=== PATIENT | male | born 1945 | race Caucasian/White ===

== ENCOUNTER 2018-02-01 13:24 | Inpatient (IN) | payer BC, SELFPAY ==
[2018-02-01] VITALS (10 sets, daily range): BP systolic 77–96; BP diastolic 49–68; PULSE 71–104; RESP 14–20; TEMP 36.5–39.2; O2SAT 93–95; BMI 25.9; BMI 25.2; BMI 25.3
--- NOTE | 2018-02-01 13:54 | EKG12_ITS ---
Test Reason : WEAKNESS Blood Pressure : / mmHG Vent. Rate : 104 BPM Atrial Rate : 104 BPM P-R Int : 158 ms QRS Dur : 102 ms QT Int : 320 ms P-R-T Axes : 034 012 063 degrees QTc Int : 420 ms Sinus tachycardia Poor R wave progression Inferior infarct , age undetermined Abnormal ECG Confirmed by BALDEV REYONSO, MARIUSZ ([id number]), order editor GERARD MERRITT ([id number]) on 02/04/2018 1:09:30 PM Referred By: LULÚ Confirmed By:MARIUSZ DE PAZ MD
--- NOTE | 2018-02-01 13:54 | RAD_ITS ---
STUDY: X-RAY CHEST REASON FOR EXAM: Male, 72 years old. Cough and fever. Weakness. TECHNIQUE: Single AP portable view of the chest. COMPARISON: Comparison is made with prior study dated March 01, 2013. FINDINGS: Early infiltrate is seen in the right lower lobe. Mild degree of increased linear markings at the left lung base. There is no demonstrated pleural abnormality. Sternal cerclage wires and vascular clips are present from a prior sternotomy and coronary artery bypass graft procedure (CABG). Normal mediastinum and onesimo. Normal visualized pulmonary arteries. There is atherosclerotic tortuosity of the aortic arch and descending thoracic aorta. Normal visualized thoracic spine. Normal visualized ribs, clavicles, and shoulders. There is no demonstrated abnormality of the visualized soft tissue structures of the upper abdomen. RAD/Chest 1 View (Portable) IMPRESSION: Right lower lobe infiltrate. Mild degree of increased markings at the left lung base. Electronically Signed: Irvin Kan MD at 14:54 EDT Tel [phone], Service support ,
[2018-02-01 14:12] LABS: Mucous, Urine 0 SEEN /hpf (<or=2+); White Blood Cells 0 SEEN /hpf (0-5)
[2018-02-01 14:16] LABS: Color, Urine Yellow (Yellow); Glucose, Dipstick Normal (Normal); Ketone-Dipstick Negative (Negative); Leukocyte Esterase-Dipstick 25 /ul (Negative); Nitrite-Dipstick Negative (Negative); Occult Blood-Urine 150 /ul (Negative); Protein-Dipstick 100 mg/dl (Negative); Urine Bilirubin Dipstick Negative (Negative); Urine Clarity Sl. Cloudy (Clear); Urine Urobilinogen 1 mg/dl (Normal)
[2018-02-01 14:18] LABS: Absolute Lymphocyte Count 0.71 X10^3/ul (0.83-4.51); Eosinophil# 0.08 X10^3/uL; Eosinophils% 0.8 % (0-5); Hematocrit 39.3 % (40-54); Hemoglobin 13.5 g/dl (13.0-16.5); Lymphocyte # 0.71 X10^3/ul (4.0); Lymphocyte % 7.2 % (19-41); Mean Corp Hgb Conc 34.4 g/gl (32-36); Mean Corpuscular Hgb 33.2 pg (27.0-32.0); Mean Corpuscular Volume 96.6 fL (80-94); Mean Platelet Vol. 10.7 fl (6.2-12.0); Monocyte# 1.11 X10^3/uL; Monocyte% 11.2 % (0-10); Neutrophil # 7.99 X10^3/uL (2.7-7.7); Neutrophil % 80.7 % (47-70); POSITIVE COUNT NO; POSITIVE DIFFERENTIAL NO; POSITIVE MORPHOLOGY NO; Platelet Count 142 K/mm3 (150-450); RBC Distribution Width SD 45.7 fl (35.1-43.9); Red Blood Count 4.07 M/mm3 (4.6-6.2); White Blood Count 9.9 K/mm3 (4.4-11.0)
[2018-02-01 14:23] LABS: International Normalized Ratio 1.2; Partial Thromboplast Time 32.5 Seconds (24.1-36.2); Prothrombin Time (Protime)PT. 15.1 SECONDS (11.7-14.9)
[2018-02-01 14:23] LABS: Bacteria 2+ /hpf (None Seen); Red Blood Cells-Urine 0-5 SEEN /hpf (0-5); Squamous Epithelial Cells - UA 0-5 SEEN /hpf (0-5)
[2018-02-01 14:33] LABS: ALB/GLOB Ratio 0.8 RATIO (0.9-2.4); AST(SGOT) 40 U/L (15-37); Alanine Aminotransfer ALT/SGPT 28 U/L (16-61); Albumin, Serum 3.2 g/dL (3.2-5.0); Alkaline Phosphatase 59 U/L (45-117); Anion Gap 10 (5-15); BUN 58 mg/dL (7-18); BUN/Creat Ratio 21.8 RATIO (10-20); Calcium,Total 8.4 mg/dL (8.5-10.1); Chloride 96 mmol/L (98-107); Creatinine, Serum 2.66 mg/dL (0.70-1.30); EST Glomerular Filtration Rate 25 mL/min (>60); Est Glom Filt Rate - Afr Amer 31 mL/min (>60); Estimated Creatinine Clearance 24.64 ml/min; Globulin 4.1 g/dL (2.2-4.2); Glucose 149 mg/dL (74-106); Potassium 3.3 mmol/L (3.5-5.1); Protein, Total 7.3 g/dL (6.4-8.2); Sodium Level 133 mmol/L (136-145)
[2018-02-01 14:42] LABS: Lactic Acid 1.6 mmol/L (0.4-2.0)
[2018-02-01] MEDS: 0.9% Normal Saline 1,000 ML 999 ML IV (15:04)
--- NOTE | 2018-02-01 15:05 | HP.PCM_ITS ---
Problem List (1) Fever Status: Acute (2) Lethargy Status: Acute History of Present Illness Date of Admission: 02/01/18 Chief Complaint: Fever and lethargy The patient is a 72 year old M with past medical history of bicuspid aortic valve status post bovine aortic valve replacement in March 2013, hypertension and hyperlipidemia. He was admitted through the ED on 02/01/2018 with complaint of fever and lethargy for 5 days. Patient states he had a subjective fever but cannot tell how high it was and was accompanied with worsening lethargy. He associated chills and a mild cough which is occasionally productive though he cannot tell the color of the sputum. He also had associated decreased appetite. He denied any shortness of breath, chest pain, palpitations, abdominal pain, pain with urination or frequency of urination, diarrhea or vomiting. In the ED, vitals were significant for temperature 102.6?F with pulse rate of 104 and respiratory rate of 20. CBC showed no leukocytosis but CMP showed sodium of 133 and potassium of 3.3 as well as creatinine of 2.66. Lactic acid was 1.6. Chest x-ray showed a right lower lobe infiltrate. He has been admitted to be managed for community-acquired pneumonia. [] Past Medical History Past Medical History (Chronic Problems): Chronic Problems (Last Reviewed 10/21/17 @ 09:05 by Michael Mcgraw MD) Aortic valve, bicuspid (Chronic) Nonrheumatic aortic (valve) insufficiency (Chronic) History of aortic valve replacement (Chronic) sternotomy and replacement of aortic valve with a size 25 pericardial valve and aortoplasty of the ascending aorta per Dr. Adithya Grullon, [facility]. HTN (hypertension) (Chronic) Chronic systolic heart failure (Chronic) Cardiomyopathy in disease classified elsewhere (Chronic) Medical History: Medical History (Last Reviewed 10/21/17 @ 09:05 by Michael Mcgraw MD) Aortic valve, bicuspid (Chronic) Q23.1 Nonrheumatic aortic (valve) insufficiency (Chronic) I35.1 HTN (hypertension) (Chronic) I10 Chronic systolic heart failure (Chronic) I50.22 Cardiomyopathy in disease classified elsewhere (Chronic) I43 Allergies No Known Allergies Allergy (Verified 10/21/17 08:47) Home Medications: Ambulatory Orders Medication Instructions Recorded carvedilol 6.25 mg tablet 6.25 mg PO BID #180 tab 07/06/17 lisinopril 20 mg tablet 20 mg PO QDAY 90 Days #90 tab 07/06/17 hydrochlorothiazide 25 mg tablet 25 mg PO QAM #90 tab 10/14/17 Surgical History: Surgical History (Last Reviewed 10/21/17 @ 09:05 by Michael Mcgraw MD) History of aortic valve replacement (Chronic) Z95.2 sternotomy and replacement of aortic valve with a size 25 pericardial valve and aortoplasty of the ascending aorta per Dr. Adithya Grullon, [facility]. S/P AVR (aortic valve replacement) and aortoplasty Onset Date: ~2012 Z95.2 Surgical History: - - aortic valve replacement-03/2013 @ [facility] Psychiatric History: No pertinent psych hx Lives: Spouse/ Significant Other Smoking Status: Former smoker - quit in 1980 Alcohol: None - *Family History Paternal Family History: Family History (Last Reviewed 10/21/17 @ 09:05 by Michael Mcgraw MD) Sister Lupus History Items: Renal Disease Maternal Family History: Family History (Last Reviewed 10/21/17 @ 09:05 by Michael Mcgraw MD) Sister Lupus History Items: No pertinent history Review of Systems Constitutional: Reports: Anorexia, Chills, Fever, Night Sweats, Malaise, Weakness, Fatigue. Denies: Weight Change Eyes: Denies: Blurred vision HEENT: Denies: Head Aches, Sinus Congestion, Sinus Drainage Cardiovascular: Denies: Chest Pain, Edema, Light Headedness, Palpitations Respiratory: Reports: Cough, Sputum production. Denies: Hemoptysis, Pleuritic Pain, Shortness of Breath, Shortness of breath at rest, Shortness of breath upon exertion, Wheezing Gastrointestinal: Denies: Abdominal Pain, Nausea, Vomiting Genitourinary: Denies: Dysuria Musculoskeletal: Denies: Joint Pain, Joint Tenderness Skin: Denies: Rash, Wounds Neurological: Denies: Numbness, Tingling, Focal weakness Psychiatric: Denies: Anxiety, Depression, Homicidal Ideations, Suicidal Ideations Hematologic/ Lymphatic: Denies: Easy Bruising, Easy Bleeding VTE Information - Inpt Only VTE Present on Admission: No VTE Pharm Prophylaxis ordered?: Yes Patient Problems: Active and Suspected Problems (Last Reviewed 10/21/17 @ 09:05 by Michael Mcgraw MD) Fever (Acute) Lethargy (Acute) - Physical Exam General: Alert, Oriented x3, Cooperative, No apparent distress HEENT: Atraumatic, PERRLA, EOMI, Normocephalic Oral: Dry Mucosa Neck: Supple, No JVD, Negative Carotid Bruits Lungs: - - Decreased breath sounds and crackles auscultated in right lower lung field Cardiovascular: Regular Rhythm, Normal S1, Normal S2, Tachycardic, - - aortic mechanical valve click Abdomen: Bowel Sounds Present, Soft, Non Tender, Non-Distended, No Hepato- splenomegaly Extremities: No clubbing, No cyanosis, No edema, Capillary Refill Less than 3 Seconds Skin: No rashes, No breakdown Musculoskeletal: No Tenderness to Palpation of Joints or Extremities Lymphatic: No Cervical, Supraclavicular, or Inguinal Adenopathy Neurological: Cranial nerves II-XII grossly intact, Neuro grossly intact, Motor Exam 5/5 strength throughout Psych/Mental Status: Normal Affect, Appropriate, Alert and oriented to time, place, person, mood and affect Vital Signs Temp Pulse Resp BP Pulse Ox 102.6 F H 97 14 96/68 93 02/01/18 15:05 02/01/18 15:05 02/01/18 15:05 02/01/18 15:05 02/01/18 15:05 Oxygen Delivery Method Room Air Weight: 171 lb Body Mass Index (BMI) 25.9 Laboratory Tests Past 24 Hrs 02/01/18 02/01/18 02/01/18 13:55 13:55 13:55 WBC 9.9 RBC 4.07 L Hgb 13.5 Hct 39.3 L MCV 96.6 H MCH 33.2 H MCHC 34.4 RDW 13.0 RDW Differential 45.7 H Plt Count 142 L MPV 10.7 Immature Gran % (Auto) 0.100 Neut % (Auto) 80.7 H Lymph % (Auto) 7.2 L Clinton % (Auto) 11.2 H Eos % (Auto) 0.8 Baso % (Auto) 0.0 Absolute Neuts (auto) 8.0 H Absolute Lymphs (auto) 0.71 L Total Counted Not Reportable PT 15.1 H INR 1.2 APTT 32.5 Sodium 133 L Potassium 3.3 L Chloride 96 L Carbon Dioxide 27.0 Anion Gap 10 BUN 58 H Creatinine 2.66 H Estim Creat Clear Calc 24.64 Est GFR (MDRD) Af Amer 31 L Est GFR (MDRD) Non-Af 25 L BUN/Creatinine Ratio 21.8 H Glucose 149 H Lactic Acid Calcium 8.4 L Total Bilirubin 0.80 AST 40 H ALT 28 Alkaline Phosphatase 59 Total Protein 7.3 Albumin 3.2 Globulin 4.1 Albumin/Globulin Ratio 0.8 L Urine Color Urine Clarity Urine pH Ur Specific Glidden Urine Protein Urine Glucose (UA) Urine Ketones Urine Occult Blood Urine Nitrite Urine Bilirubin Urine Urobilinogen Ur Leukocyte Esterase Urine RBC Urine WBC Ur Squamous Epith Cells Urine Bacteria Urine Mucus 02/01/18 02/01/18 13:55 14:00 WBC RBC Hgb Hct MCV MCH MCHC RDW RDW Differential Plt Count MPV Immature Gran % (Auto) Neut % (Auto) Lymph % (Auto) Clinton % (Auto) Eos % (Auto) Baso % (Auto) Absolute Neuts (auto) Absolute Lymphs (auto) Total Counted PT INR APTT Sodium Potassium Chloride Carbon Dioxide Anion Gap BUN Creatinine Estim Creat Clear Calc Est GFR (MDRD) Af Amer Est GFR (MDRD) Non-Af BUN/Creatinine Ratio Glucose Lactic Acid 1.6 Calcium Total Bilirubin AST ALT Alkaline Phosphatase Total Protein Albumin Globulin Albumin/Globulin Ratio Urine Color Yellow Urine Clarity Sl. Cloudy Urine pH 5.0 Ur Specific Glidden 1.020 Urine Protein 100 H Urine Glucose (UA) Normal Urine Ketones Negative Urine Occult Blood 150 H Urine Nitrite Negative Urine Bilirubin Negative Urine Urobilinogen 1 H Ur Leukocyte Esterase 25 H Urine RBC 0-5 SEEN Urine WBC 0 SEEN Ur Squamous Epith Cells 0-5 SEEN Urine Bacteria 2+ Urine Mucus 0 SEEN Diagnostic Data Chest X-Ray 02/01/18 13:54 IMPRESSION: Right lower lobe infiltrate. Mild degree of increased markings at the left lung base. Electronically Signed: Irvin Kan MD at 14:54 EDT Tel [phone], Service support , Assessment/Plan All Active Problems (Last Reviewed 10/21/17 @ 09:05 by Michael Mcgraw MD) Fever (Acute) Lethargy (Acute) 72-year-old male presenting with a 5-day history of fever, mild cough which is productive and chills. 1. Sepsis due to community acquired pneumonia * SIRS criteria on admission in ED was 3/4 (tachycardia, tachypnea and fever) * CXR per my review showed right lower lobe infiltrate * admit to PCU with telemetry * CBC: no leucocytosis * blood cultures; urine for strep and legionella antigens. * LActic acid-1.8 * UA showed 2+ bacteria; patient however has no urinary symptoms. Will culture urine. * Screen for flu * Started on IV ceftriaxone and azithromycin in the ED. We will continue to treat for community-acquired pneumonia. * Hydrate with IV fluids. * Tylenol as needed for fever * 2. Hyponatremia: * Sodium is 133. * This is likely due to dehydration as patient has not been eating and drinking well; therefore likely hypovolemic hypotonic hyponatremia. * Expect to improve with IV fluid administration. * 3. AK I * Creatinine is 2.66, with baseline being around 1.2. * Also likely prerenal due to decreased intake. * Will hydrate with IV fluids and monitor trend. If creatinine does not improve, will consider nephrology consult. * 4. Hypokalemia: K is 3.3. Will replace and monitor 5. HFrEF: * echo (09/30/2016): showed EF of 40%, with mild to moderate global LV systolic dysfunction. BIoprosthetic aortic valve. * not on any diuretic. * will continue to monitor 4. Thrombocytopenia * Is chronic. Platelets are 142, with baseline of around 145-150 from 2012 * will monitor * 5. Hypertension: * Blood pressure was running in the 90s systolic in the ED. On carvedilol hydrochlorothiazide and lisinopril. * Will hold these on account of low blood pressure and also with lisinopril, on account of AK I. * will resume once BP improves * DVT prophylaxis: heparin COde status: full code * patient and counselled about different types of code status, including full code, DNRCC and DNRCCA. Patient elects to be full code. TOtal face to face time- 17 mins Code Visit Inpatient E&M: 52796 Init Hosp L3 Procedures: 19371 Advncd Care Plan 30 Min
--- NOTE | 2018-02-01 15:08 | ED.DCSUM_ITS ---
- ER Visit Summary Date of Service: 02/01/18 Chief Complaint: Generalized weakness History of Present Illness: The patient is a 72 M setting for evaluation secondary generalized weakness. Patient reports over the course last 5 days he has been having issues with feeling generally weak. He reports that he has been having severe night sweats. He reports that he has unsteadiness on his feet, decreased p.o. intake, but increased thirst and increased urination. This has been associated with some nausea. He denies any objective fevers. He denies any chest pain shortness of breath cough nausea or vomiting associated with this. He denies any skin rashes. Review of systems otherwise negative. Physical Examination: Vital signs notable for blood pressure 96/63 heart rate of 109 respiratory rate of 20 and pulse ox 93%. Well-nourished male no acute distress. No evidence of conjunctival pallor or scleral icterus. Moist mucous membranes. No JVD. Heart was tachycardic regular with a 2 out of 6 systolic murmur consistent with the patient's history of aortic valve replacement. Lung sounds clear to auscultation bilaterally. Abdomen soft nontender. Extremities nontender. No skin rashes noted. No lateralizing neurological deficits. Test Results: EKG demonstrates sinus tachycardia with a rate of [address] segments normal T waves and old inferior Q waves. CBC shows thrombocytopenia platelet count 142. Chemistry shows acute kidney injury BUN and creatinine of 50 and 2 respectively. Urinalysis shows 2+ bacteria but no leukocytes lactic acid negative chest x-ray shows right lower lobe infiltrate. Emergency Department Course and Treatment: Patient presented for evaluation secondary to generalized weakness. He had mediocre blood pressures, he was worked up for the possibility of sepsis. Patient's workup as noted above ended up showing right lower lobe infiltrate with acute kidney injury. Patient does meet severe sepsis criteria. Patient was given fluid resuscitation, Rocephin, azithromycin, will be admitted under the hospitalist. Disposition: Admission Impression: 1. Community-acquired pneumonia 2. Severe sepsis 3. Acute kidney injury This note was generated with [employer] dictation software. It may contain incorrect words, spelling, and punctuation that were not noted in review of the chart prior to signing ED Disposition - Plan for ED Patient: Chief Complaint: Weakness Referrals: Care Physician,No Primary [Primary Care Provider] -
[2018-02-01] MEDS: Acetaminophen 500 MG Tablet 1000 MG PO (15:11)
[2018-02-01] MEDS: Ceftriaxone 1 GM/50 ML BAG IV ×2 (15:17→21:00)
[2018-02-01] MEDS: 0.9% Normal Saline 1,000 ML 250 ML IV (16:58)
[2018-02-01] MEDS: 0.9% Normal Saline 1,000 ML 125 ML IV (21:00)
[2018-02-01] MEDS: Heparin Injection (Vial) 5,000 UNIT/ML VIAL 5000 UNIT SC (21:01)
[2018-02-02] VITALS (14 sets, daily range): BP systolic 97–139; BP diastolic 64–86; PULSE 59–92; RESP 18–20; TEMP 36.8–39.4; O2SAT 90–95
[2018-02-02] MEDS: Acetaminophen 325 MG Tablet 650 MG PO ×2 (04:51→13:56)
[2018-02-02] MEDS: 0.9% Normal Saline 1,000 ML 125 ML IV ×3 (04:51→21:01)
[2018-02-02] MEDS: Heparin Injection (Vial) 5,000 UNIT/ML VIAL 5000 UNIT SC ×3 (04:56→21:01)
[2018-02-02 06:30] LABS: Absolute Neutrophil Count 6.6 X10^3/uL (2.0-7.7); Basophil# 0.01 X10^3/uL; Basophil% 0.1 % (0-1); Hematocrit 34.4 % (40-54); Hemoglobin 11.8 g/dl (13.0-16.5); Lymphocyte % 10.9 % (19-41); Mean Corp Hgb Conc 34.3 g/gl (32-36); Mean Corpuscular Hgb 33.1 pg (27.0-32.0); Mean Corpuscular Volume 96.6 fL (80-94); Monocyte# 0.66 X10^3/uL; Neutrophil # 6.63 X10^3/uL (2.7-7.7); Neutrophil % 80.8 % (47-70); Platelet Count 128 K/mm3 (150-450); RBC Distribution Width CV 12.6 % (11.6-14.6); RBC Distribution Width SD 42.7 fl (35.1-43.9); Red Blood Count 3.56 M/mm3 (4.6-6.2); White Blood Count 8.2 K/mm3 (4.4-11.0)
[2018-02-02 06:58] LABS: Anion Gap 9 (5-15); BUN 39 mg/dL (7-18); BUN/Creat Ratio 24.2 RATIO (10-20); Calcium,Total 7.6 mg/dL (8.5-10.1); Chloride 102 mmol/L (98-107); Creatinine, Serum 1.61 mg/dL (0.70-1.30); EST Glomerular Filtration Rate 45 mL/min (>60); Est Glom Filt Rate - Afr Amer 55 mL/min (>60); Estimated Creatinine Clearance 40.71 ml/min; Glucose 99 mg/dL (74-106); Potassium 3.4 mmol/L (3.5-5.1); Sodium Level 134 mmol/L (136-145)
[2018-02-02 06:59] LABS: POSITIVE COUNT NO; POSITIVE DIFFERENTIAL NO; POSITIVE MORPHOLOGY NO
--- NOTE | 2018-02-02 08:00 | ECHOD_ITS ---
Reason For Study: AVR Procedure This was a 2D Doppler, Color Flow transthoracic echocardiogram. Exam performed portable in patient room. Left Ventricle Normal size and thickness. The estimated ejection fraction is 65 %. Stage 2 diastolic dysfunction. No regional wall motion abnormalities noted. Right Ventricle Normal size and thickness. Normal systolic function. Atria Normal left atrium. Normal right atrium. Normal atrial septum. Mitral Valve The mitral valve is structurally normal. No prolapse or stenosis seen. Mild (1+) eccentric mitral valve insufficiency. Tricuspid Valve Normal tricuspid valve. Mild (1+) tricuspid valve insufficiency. Right ventricular systolic pressure estimated to be 37 mmHg. Mild pulmonary hypertension. Aortic Valve Peak aortic valve gradient 61 mmHg. Mean aortic valve gradient 38 mmHg. Moderate aortic stenosis. Trivial aortic valve insufficiency. Stable appearing bioprosthetic aortic valve apparatus. Pulmonic Valve Normal pulmonic valve. Trivial pulmonic valve insufficiency. Great Vessels Normal aortic root. Normal arch. Normal inferior vena cava. Inferior vena cava collapse with sniff. Pericardium/Pleural No pericardial effusion. MMode/2D Measurements & Calculations LVIDd: 5.3 cm IVSd: 1.5 cm LVOT diam: 2.1 cm LVIDs: 3.6 cm LVPWd: 1.1 cm LVOT area: 3.4 cm2 RVDd: 4.8 cm FS: 33.1 % Ao root diam: 3.6 cm LAV(MOD-sp4): 59.1 ml EDV(MOD-sp4): 93.8 ml LA dimension: 4.5 cm ESV(MOD-sp4): 35.2 ml EF(MOD-sp4): 62.4 % SV(MOD-sp4): 58.6 ml LA A4 area: 18.7 cm2 LA dimension(2D): 4.9 cm RA A4 area: 20.0 cm2 Doppler Measurements & Calculations MV E max otto: 95.9 cm/sec Lat Peak E' Otto: 9.2 cm/sec Med Peak E' Otto: 5.4 cm/sec MV A max otto: 79.2 cm/sec E/E' lat: 10.4 E/E' med: 17.9 MV E/A: 1.2 Ao V2 max: 381.1 cm/sec LV V1 max: 167.2 cm/sec SV(LVOT): 134.6 ml Ao max P.1 mmHg LV V1 max P.2 mmHg Ao V2 mean: 285.7 cm/sec LV V1 mean P.6 mmHg Ao mean P.5 mmHg LV V1 mean: 131.2 cm/sec Ao V2 VTI: 85.0 cm LV V1 VTI: 40.0 cm THUY(I,D): 1.6 cm2 THUY(V,D): 1.5 cm2 PA V2 max: 89.4 cm/sec PI end-d otto: 116.7 cm/sec Interpretation Summary The estimated ejection fraction is 65 %. Stage 2 diastolic dysfunction. Mild (1+) eccentric mitral valve insufficiency. Mild (1+) tricuspid valve insufficiency. Right ventricular systolic pressure estimated to be 37 mmHg. Stable and normal appearing bioprosthetic aortic valve apparatus. Peak aortic valve gradient 61 mmHg. Mean aortic valve gradient 38 mmHg. Moderate residual aortic stenosis with bioprosthetic AVR. Compared to echo report dated 09/30/2016, LV function has improved from 405 to 65%, AVR has remained the same. Ordering Physician: Nina Acosta Performed By: Leeanne Meyer RDCS, RVT
[2018-02-02] MEDS: Ceftriaxone 1 GM/50 ML BAG IV ×2 (09:51→21:01)
[2018-02-02 10:52] LABS: Magnesium 1.8 mg/dL (1.6-2.6); Phosphorus 1.7 mg/dL (2.5-4.9)
--- NOTE | 2018-02-02 11:56 | CASEMGMT ---
KARLY RAMOS assessment: Face to Face with patient for initial transition planning/care coordination assessment. KARLY RAMOS introduced self and role at [facility], pt voices understanding and consents to assessment at this time. Pt is lying in bed in no distress at this time. Pt is A/O x4 at this time and answers all questions appropriately at this time. Care providers, pharmacy, and demographics verified at this time. PCP: Pt states does not have PCP and declines local PCP list at this time. Specialists: Pt states has not specialists. Preferred [facility]acy: [facility] Insurance: [place] Prescription Benefit: [place] Living Will/HPOA: Pt states does not currently have LW/HPOA but would like info on AD at this time. Referral to [facility], voices understanding. LNOK: Makayla Zacarias, Living Arrangements: Pt states lives with in home and states no concerns at home at this time. Transportation: Pt states drives self and states no transportation concerns at this time. DME/HHC: Pt states no current DME or need for any at this time. Pt states no hx of SNF or HHC. 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 Pt states does not smoke or drink ETOH. Pt states no concerns with going home at time of discharge. Pt voices no further concerns/needs at this time. CM to follow for any further discharge planning/needs. Advised pt to ask for CM if any further questions/concerns/needs arise, voices understanding. Plan: [place] KARLY RAMOS
--- NOTE | 2018-02-02 13:35 | ED.RN ---
STUDENT CHARTING REVIEWED BY THIS RN.
--- NOTE | 2018-02-02 14:08 | CASEMGMT ---
RN CM said patient would like information on advance directives. SW spoke with patient, introduced self and role at [facility]. He said he would like the documents and will look over them. Catarina DUMONT
--- NOTE | 2018-02-02 15:38 | PN_ITS ---
<Agustin Harrison - Last Filed: 02/02/18 15:28> Patient Problems: Active and Suspected Problems (Last Reviewed 10/21/17 @ 09:05 by Michael Mcgraw MD) Fever (Acute) Lethargy (Acute) Subjective: Overall pt feels improved but still very weak. He denies pleurisy, cough, and SOB. He has no CP. He has had fevers, chills, and night sweats the last few days. Fever has been present since admission. Denies smoking, denies sick contacts. Sawdust exposure at work. No Asthma/COPD. No urinary symptoms. - Physical Exam General: Alert, Oriented x3, Cooperative HEENT: Atraumatic, PERRLA, EOMI, Normocephalic Neck: Supple, No JVD, Negative Carotid Bruits Lungs: Rales - RLL Cardiovascular: Regular rate, No murmurs Abdomen: Bowel Sounds Present, Soft, Non Tender Extremities: No edema, Capillary Refill Less than 3 Seconds Skin: No rashes, No breakdown Musculoskeletal: No Tenderness to Palpation of Joints or Extremities Neurological: Cranial nerves II-XII grossly intact Psych/Mental Status: Normal Affect, Appropriate Vital Signs Temp Pulse Resp BP Pulse Ox 103 F H 75 20 H 114/73 90 02/02/18 14:06 02/02/18 15:00 02/02/18 14:06 02/02/18 14:06 02/02/18 14:06 Oxygen Delivery Method Room Air Weight: 166 lb 7.184 oz Body Mass Index (BMI) 25.2 Intake and Output for Last 24 Hours 01/31/18 02/01/18 02/02/18 23:59 23:59 23:59 Intake Total 4706 / 4706 2294 / 2294 Output Total 350 / 350 Balance 4356 / 4356 2294 / 2294 Microbiology Past 72 Hours 02/01/18 19:25 Respiratory Panel (PCR) - Final Mucosa - Nasopharyngeal 02/01/18 14:00 Streptococcus pneumoniae Antigen (M - Final Urine, Clean Catch 02/01/18 14:00 Legionella Antigen - Final Urine, Clean Catch Laboratory Tests Past 24 Hrs 02/02/18 02/02/18 02/02/18 05:35 05:35 05:35 WBC 8.2 RBC 3.56 L Hgb 11.8 L Hct 34.4 L MCV 96.6 H MCH 33.1 H MCHC 34.3 RDW 12.6 RDW Differential 42.7 Plt Count 128 L MPV 11.0 Immature Gran % (Auto) 0.200 Neut % (Auto) 80.8 H Lymph % (Auto) 10.9 L [place] % (Auto) 8.0 Eos % (Auto) 0.0 Baso % (Auto) 0.1 Absolute Neuts (auto) 6.6 Absolute Lymphs (auto) 0.90 Total Counted Not Reportable Sodium 134 L Potassium 3.4 L Chloride 102 Carbon Dioxide 23.0 Anion Gap 9 BUN 39 H Creatinine 1.61 H Estim Creat Clear Calc 40.71 Est GFR (MDRD) Af Amer 55 L Est GFR (MDRD) Non-Af 45 L BUN/Creatinine Ratio 24.2 H Glucose 99 Calcium 7.6 L Phosphorus 1.7 L Magnesium 1.8 Medical Necessity - Tobacco Use Smoking Status: Former smoker - quit in 1980 Assessment/Plan All Active Problems (Last Reviewed 10/21/17 @ 09:05 by Michael Mcgraw MD) Fever (Acute) Lethargy (Acute) 1. Acute sepsis 2/2 RLL CAP - continue rocephin/azithro. Resp panel neg. Continues to have fever up to 103. No WBC elevation. LA neg. CXR c/w RLL pna. 2. RONEN 2/2 sepsis - improving. 3. hyponatremia - likely 2/2 hypovolemic and HCTZ (held for ronen). improved. 4. Hypokalemia/hypomag/hykophos - repleted, mildly low mag, replete. Phos low. Replete. 5. HFrEF - this does not apepar to be an acute exacerbation. Echo pending. Known EF 40%. Continue coreg. SHAD held for RONEN. 6. hx bovine aortic valve - echo pending. DVT ppx: heparin DC planning: pt/ot for ongoing weakness. This patient was seen by Agustin Harrison PA-C under the supervision of Doctor Schuster. <Wily Schuster - Last Filed: 02/02/18 16:36> Subjective: Patient was seen and examined. Patient was admitted with 5 days of fever, cough productive with clear sputum. On chest x-ray small right lower lobe community- acquired pneumonia. Patient also has hyponatremia, sodium 133, acute kidney injury creatinine 2.6, baseline 1.2. Has chronic systolic heart failure with EF 40% on echo September 2016. Bioprosthetic AV valve. - Physical Exam General: Alert, Oriented x3, Cooperative HEENT: Atraumatic, PERRLA, EOMI, Normocephalic Neck: Supple, No JVD, Negative Carotid Bruits Lungs: Diminished - Air entry diminished in bilateral lung bases, more on the left side, Rales - RLL coarse crepitation present on the right posterior half. Cardiovascular: Regular rate, Regular Rhythm, Normal S1, Normal S2, No murmurs Abdomen: Bowel Sounds Present, Soft, Non Tender, Non-Distended, No Hepato- splenomegaly Extremities: No edema, Capillary Refill Less than 3 Seconds Skin: No rashes, No breakdown Musculoskeletal: No Tenderness to Palpation of Joints or Extremities, Arthritic Changes Neurological: Cranial nerves II-XII grossly intact, Neuro grossly intact, Motor Exam 5/5 strength throughout Psych/Mental Status: Normal Affect, Appropriate Vital Signs Temp Pulse Resp BP Pulse Ox 99.4 F H 73 18 97/64 93 02/02/18 15:39 02/02/18 15:39 02/02/18 15:39 02/02/18 15:39 02/02/18 15:39 Oxygen Delivery Method Room Air Weight: 166 lb 7.184 oz Body Mass Index (BMI) 25.2 Intake and Output for Last 24 Hours 01/31/18 02/01/18 02/02/18 23:59 23:59 23:59 Intake Total 4706 / 4706 2294 / 2294 Output Total 350 / 350 Balance 4356 / 4356 2294 / 2294 Microbiology Past 72 Hours 02/01/18 19:25 Respiratory Panel (PCR) - Final Mucosa - Nasopharyngeal 02/01/18 14:00 Streptococcus pneumoniae Antigen (M - Final Urine, Clean Catch 02/01/18 14:00 Legionella Antigen - Final Urine, Clean Catch Laboratory Tests Past 24 Hrs 02/02/18 02/02/18 02/02/18 05:35 05:35 05:35 WBC 8.2 RBC 3.56 L Hgb 11.8 L Hct 34.4 L MCV 96.6 H MCH 33.1 H MCHC 34.3 RDW 12.6 RDW Differential 42.7 Plt Count 128 L MPV 11.0 Immature Gran % (Auto) 0.200 Neut % (Auto) 80.8 H Lymph % (Auto) 10.9 L [place] % (Auto) 8.0 Eos % (Auto) 0.0 Baso % (Auto) 0.1 Absolute Neuts (auto) 6.6 Absolute Lymphs (auto) 0.90 Total Counted Not Reportable Sodium 134 L Potassium 3.4 L Chloride 102 Carbon Dioxide 23.0 Anion Gap 9 BUN 39 H Creatinine 1.61 H Estim Creat Clear Calc 40.71 Est GFR (MDRD) Af Amer 55 L Est GFR (MDRD) Non-Af 45 L BUN/Creatinine Ratio 24.2 H Glucose 99 Calcium 7.6 L Phosphorus 1.7 L Magnesium 1.8 Assessment/Plan This patient was seen in conjunction with Agustin LEWIS. I have independently interviewed and examined the patient and reviewed pertinent history, examination findings, laboratory and plan of management. I have reviewed the note and agree with the documented findings with the few additional points. In brief, patient is 72-year-old gentleman with history of bicuspid aortic valve status post bovine aortic valve replacement in March 2013 chronic systolic heart failure EF 40% as per echo in September 2016,hypertension and hyperlipidemia was admitted with fever, cough with clear sputum, generalized weakness consistent with acute sepsis SIRS 3/4 (tachycardia, tachypnea and fever) secondary to right lower lobe community acquired pneumonia; present on admission. Patient also has acute kidney injury probably prerenal etiology, creatinine improving. Mild hyponatremia on IV fluid normal saline. 2D echo was done. I have discussed my assessment with Agustin LEWIS and orders have been reviewed. Code Visit Inpatient E&M: 17750 Subs Hosp L3
[2018-02-02] MEDS: Magnesium Oxide 400 MG Tablet PO (17:24)
[2018-02-03 03:00] VITALS: BP 120/76; PULSE 77; PULSE 80; RESP 16; TEMP 37.1; O2SAT 93
[2018-02-03] MEDS: Heparin Injection (Vial) 5,000 UNIT/ML VIAL 5000 UNIT SC (05:20)
[2018-02-03] MEDS: Na Biphos/Potassium Phosphate PACKET 1 PACKET PO (05:20)
[2018-02-03] MEDS: 0.9% Normal Saline 1,000 ML 125 ML IV (05:20)
[2018-02-03 06:45] LABS: Absolute Lymphocyte Count 0.98 X10^3/ul (0.83-4.51); Absolute Neutrophil Count 4.6 X10^3/uL (2.0-7.7); Eosinophil# 0.02 X10^3/uL; Eosinophils% 0.3 % (0-5); Hematocrit 32.9 % (40-54); Hemoglobin 11.3 g/dl (13.0-16.5); Lymphocyte # 0.98 X10^3/ul (4.0); Lymphocyte % 15.7 % (19-41); Mean Corp Hgb Conc 34.3 g/gl (32-36); Mean Corpuscular Hgb 32.9 pg (27.0-32.0); Mean Corpuscular Volume 95.9 fL (80-94); Mean Platelet Vol. 10.5 fl (6.2-12.0); Monocyte# 0.63 X10^3/uL; Monocyte% 10.1 % (0-10); Neutrophil % 73.7 % (47-70); Platelet Count 135 K/mm3 (150-450); RBC Distribution Width SD 45.4 fl (35.1-43.9); Red Blood Count 3.43 M/mm3 (4.6-6.2); White Blood Count 6.2 K/mm3 (4.4-11.0)
[2018-02-03 07:00] VITALS: PULSE 66
[2018-02-03 07:00] LABS: POSITIVE COUNT NO; POSITIVE DIFFERENTIAL NO; POSITIVE MORPHOLOGY NO
[2018-02-03 07:13] LABS: Anion Gap 10 (5-15); BUN 26 mg/dL (7-18); BUN/Creat Ratio 20.8 RATIO (10-20); Calcium,Total 7.7 mg/dL (8.5-10.1); Chloride 104 mmol/L (98-107); Creatinine, Serum 1.25 mg/dL (0.70-1.30); EST Glomerular Filtration Rate 60 mL/min (>60); Est Glom Filt Rate - Afr Amer 73 mL/min (>60); Estimated Creatinine Clearance 52.44 ml/min; Glucose 91 mg/dL (74-106); Magnesium 1.7 mg/dL (1.6-2.6); Phosphorus 1.4 mg/dL (2.5-4.9); Potassium 3.8 mmol/L (3.5-5.1); Sodium Level 137 mmol/L (136-145)
[2018-02-03 09:00] VITALS: BP 117/70; PULSE 72; RESP 16; TEMP 37.1; O2SAT 93
[2018-02-03] MEDS: Ceftriaxone 1 GM/50 ML BAG IV (09:03)
[2018-02-03] MEDS: Carvedilol 6.25 MG Tablet PO (09:04)
[2018-02-03] MEDS: Magnesium Oxide 400 MG Tablet PO (09:07)
[2018-02-03 11:00] VITALS: PULSE 97
--- NOTE | 2018-02-03 11:28 | DCINST_ITS ---
- Discharge Diagnoses Current Active Problems: Current Active and Chronic Problems (Last Reviewed 10/21/17 @ 09:05 by Michael Mcgraw MD) Fever (Acute) Lethargy (Acute) You will use the following diet at home:: Cardiac Discharge Activity: Return to Normal Activity Call your doctor if you observe: Shortness of breath, Dizziness, Fainting spells, Chest pain Allergies/Adverse Reactions: Allergies No Known Allergies Allergy (Verified 10/21/17 08:47) Medications to take at Discharge carvedilol 6.25 mg tablet 6.25 mg PO BID #180 tab 07/06/17 lisinopril 20 mg tablet 20 mg PO QDAY 90 Days #90 tab 07/06/17 hydrochlorothiazide 25 mg tablet 25 mg PO QAM #90 tab 10/14/17 Levofloxacin [Levaquin] 750 mg PO DAILY #7 tablet 02/03/18 The following prescriptions were given: Levofloxacin [Levaquin] 750 mg PO DAILY #7 tablet Primary Care Physician: Care Physician,No Primary [Primary Care Provider] - Please follow up with your Primary Care Physician in: 3-5 days Test Results: Test results from this visit will be discussed in further detail at your follow- up appointment, if applicable. Please Follow Up With: Michael Mcgraw MD When: As scheduled Proposed Discharge Date: 02/03/18
--- NOTE | 2018-02-03 12:25 | DS.PCM_ITS ---
<Keila Oneill - Last Filed: 02/03/18 12:36> Discharge Date and Diagnosis Date of Admission: 02/01/18 Date of Discharge: 02/03/18 - Primary Discharge Diagnosis 1. Acute sepsis secondary to right lower lobe community-acquired pneumonia 2. Acute kidney injury secondary to sepsis 3. Electrolyte disturbance including hyponatremia, hypokalemia, hypomagnesemia, hypophosphatemia suspect secondary to hypovolemia and HCTZ regimen. RONEN resolved. 4. Chronic systolic CHF 5. History of bovine aortic valve - Secondary Discharge Diagnosis Chronic Problems (Last Reviewed 10/21/17 @ 09:05 by Michael Mcgraw MD) Aortic valve, bicuspid (Chronic) Nonrheumatic aortic (valve) insufficiency (Chronic) History of aortic valve replacement (Chronic) sternotomy and replacement of aortic valve with a size 25 pericardial valve and aortoplasty of the ascending aorta per Dr. Adithya Grullon, [facility]. HTN (hypertension) (Chronic) Chronic systolic heart failure (Chronic) Cardiomyopathy in disease classified elsewhere (Chronic) Hospital Course and Treatment Imaging Results: Diagnostic Data Chest X-Ray 02/01/18 13:54 IMPRESSION: Right lower lobe infiltrate. Mild degree of increased markings at the left lung base. Electronically Signed: Irvin Kan MD at 14:54 EDT Tel [phone], Service support , Operations: None Procedures: None Summary of Care Provided: The patient is a 72 year old M admitted 02/01/2018 due to fever and lethargy. He has a past medical history of hypertension, hyperlipidemia, status post aortic valve replacement with bovine valve. 1. Acute sepsis secondary to right lower lobe community-acquired pneumonia-chest x-ray on admission showed right lower lobe infiltrate. Patient with tachycardia, tachypnea and fever on admission. No leukocytosis. Lactic acid within normal limits. Urine for strep and Legionella negative. Respiratory panel negative. Blood culture shows no growth in 48 hours. Treated with IV Rocephin and IV azithromycin. Discharge on oral Levaquin 750 mg for 7 days at discharge. Follow-up with primary care physician in 1 week. 2. Acute kidney injury secondary to sepsis-resolved with IV fluids. 3. Electrolyte disturbance including hyponatremia, hypokalemia, hypomagnesemia, hypophosphatemia suspect secondary to hypovolemia and HCTZ regimen. RONEN resolved. Electrolytes replace per protocol. Within normal limits at discharge. 4. Chronic systolic CHF-no acute exacerbation. Echo September 2016 with EF 40%. 5. History of bovine aortic valve 6. Hyperlipidemia-not on regimen. Will refer to PCP. General: Alert, Oriented x3, Cooperative, No apparent distress HEENT: Atraumatic, PERRLA, EOMI, Normocephalic Oral: Dry Mucosa Neck: Supple, No JVD, Negative Carotid Bruits Lungs: Diminished, mild scattered crackles right lower lobe Cardiovascular: Regular Rhythm, regular rate, normal S1, Normal S2, Aortic mechanical valve click Abdomen: Bowel Sounds Present, Soft, Non Tender, Non-Distended, No Hepato- splenomegaly Extremities: No clubbing, No cyanosis, No edema, Capillary Refill Less than 3 Seconds Skin: No rashes, No breakdown Musculoskeletal: No Tenderness to Palpation of Joints or Extremities Lymphatic: No Cervical, Supraclavicular, or Inguinal Adenopathy Neurological: Cranial nerves II-XII grossly intact, Neuro grossly intact Psych/Mental Status: Normal Affect, Appropriate Patient seen exam prior to discharge. Physical assessment as noted above. P atient stable for discharge home with follow-up her conditions as noted above. This patient was seen by DAMARIS Austin under the supervision of Dr. Schuster. - Physical Exam Vital Signs Temp Pulse Resp BP Pulse Ox 98.8 F 97 16 117/70 93 02/03/18 09:00 02/03/18 11:00 02/03/18 09:00 02/03/18 09:00 02/03/18 09:00 Oxygen Delivery Method Room Air Weight: 166 lb 7.184 oz Body Mass Index (BMI) 25.2 Intake and Output for Last 24 Hours 02/01/18 02/02/18 02/03/18 23:59 23:59 23:59 Intake Total 4706 / 4706 3495 / 3495 3114 / 3114 Output Total 350 / 350 200 / 200 1425 / 1425 Balance 4356 / 4356 3295 / 3295 1689 / 1689 Microbiology Past 72 Hours 02/01/18 14:20 Blood Culture - Preliminary Blood Culture (Wb) - Left Hand No growth in 48 hours. 02/01/18 13:55 Blood Culture - Preliminary Blood Culture (Wb) - Anticubital Left No growth in 48 hours. 02/01/18 14:00 Urine Culture - Preliminary Urine, Clean Catch Culture exhibits no growth. 02/01/18 19:25 Respiratory Panel (PCR) - Final Mucosa - Nasopharyngeal 02/01/18 14:00 Streptococcus pneumoniae Antigen (M - Final Urine, Clean Catch 02/01/18 14:00 Legionella Antigen - Final Urine, Clean Catch Laboratory Tests Past 24 Hrs 02/03/18 02/03/18 05:40 05:40 WBC 6.2 RBC 3.43 L Hgb 11.3 L Hct 32.9 L MCV 95.9 H MCH 32.9 H MCHC 34.3 RDW 13.0 RDW Differential 45.4 H Plt Count 135 L MPV 10.5 Immature Gran % (Auto) 0.200 Neut % (Auto) 73.7 H Lymph % (Auto) 15.7 L [place] % (Auto) 10.1 H Eos % (Auto) 0.3 Baso % (Auto) 0.0 Absolute Neuts (auto) 4.6 Absolute Lymphs (auto) 0.98 Total Counted Not Reportable Sodium 137 Potassium 3.8 Chloride 104 Carbon Dioxide 23.0 Anion Gap 10 BUN 26 H Creatinine 1.25 Estim Creat Clear Calc 52.44 Est GFR (MDRD) Af Amer 73 Est GFR (MDRD) Non-Af 60 BUN/Creatinine Ratio 20.8 H Glucose 91 Calcium 7.7 L Phosphorus 1.4 L Magnesium 1.7 Discharge Activity: Return to Normal Activity Call your doctor if you observe: Shortness of breath, Dizziness, Fainting spells, Chest pain Home Medications: Medications to take at Discharge carvedilol 6.25 mg tablet 6.25 mg PO BID #180 tab 07/06/17 lisinopril 20 mg tablet 20 mg PO QDAY 90 Days #90 tab 07/06/17 hydrochlorothiazide 25 mg tablet 25 mg PO QAM #90 tab 10/14/17 Levofloxacin [Levaquin] 750 mg PO DAILY #7 tablet 02/03/18 Following Prescrptions Were Given to Patient: Levofloxacin [Levaquin] 750 mg PO DAILY #7 tablet Primary Care Physician: Care Physician,No Primary [Primary Care Provider] - Please follow up with your Primary Care Physician in: 3-5 days Please Follow Up With: Michael Mcgraw MD When: As scheduled Please Follow Up With: Sumanth Hernández MD Disposition: Home Minutes spent on discharge:: 35 Patient Condition:: Stable Medical Necessity - Tobacco Use Smoking Status: Former smoker - quit in 1980 Meaningful Use Info Meaningful Use Diagnoses (Choose all that apply): None applicable <Wily Schuster - Last Filed: 02/03/18 16:25> Discharge Date and Diagnosis - Secondary Discharge Diagnosis Chronic Problems (Last Reviewed 10/21/17 @ 09:05 by Michael Mcgraw MD) Aortic valve, bicuspid (Chronic) Nonrheumatic aortic (valve) insufficiency (Chronic) History of aortic valve replacement (Chronic) sternotomy and replacement of aortic valve with a size 25 pericardial valve and aortoplasty of the ascending aorta per Dr. Adithya Grullon, [facility]. HTN (hypertension) (Chronic) Chronic systolic heart failure (Chronic) Cardiomyopathy in disease classified elsewhere (Chronic) Hospital Course and Treatment Summary of Care Provided: This patient was seen in conjunction with Keila BUCK. I have independently interviewed and examined the patient and reviewed pertinent history, examination findings, laboratory and plan of management. I have reviewed the note and agree with the documented findings with the few additional points. In brief, patient is 72-year-old gentleman with history of bicuspid aortic valve status post bovine aortic valve replacement in March 2013 chronic systolic heart failure EF 40% as per echo in September 2016,hypertension and hyperlipidemia was admitted with fever, cough with clear sputum, generalized weakness consistent with acute sepsis SIRS 3/4 (tachycardia, tachypnea and fever) secondary to right lower lobe community acquired pneumonia; present on admission. Patient also has acute kidney injury probably prerenal etiology, creatinine improving. Mild hyponatremia on IV fluid normal saline. 2D echo was done. 2D echo reported as EF 65% with a stage II diastolic dysfunction. Moderate right ventricular hypertrophy. Right atrium normal. Left atrium normal. Mild TR, RVSP 30 cm G. Moderate pulmonary hypertension. Status post AV replacement. Trivial AR. Acute kidney injury resolved, to baseline 1.25. Sodium corrected to 137. Discharge medication reconciliation done. Follow-up instructions given. Patient is discharged on Levaquin. I have discussed my assessment with Keila BUCK and orders have been reviewed. [] Total time spent, exact 35 minutes on discharge meds reconciliation, examination, review of imaging and blood test and discussion with the patient on follow-up instructions. Subjective: Seen and examined. Patient comfortably sitting in the chair. No shortness of breath/tachypnea or hypoxia. No fever. Pulse ox 93% on room air. Objective: General: Alert, Oriented x3, Cooperative HEENT: Atraumatic, PERRLA, EOMI, Normocephalic Neck: Supple, No JVD, Negative Carotid Bruits Lungs: Air entry slightly diminished on the left side, although improved. No crepitation/rhonchi or wheezing. Cardiovascular: Regular rate, Regular Rhythm, Normal S1, Normal S2, No murmurs Abdomen: Bowel Sounds Present, Soft, Non Tender, Non-Distended, No Hepato- splenomegaly Extremities: No edema, Capillary Refill Less than 3 Seconds Skin: No rashes, No breakdown Musculoskeletal: No Tenderness to Palpation of Joints or Extremities, Arthritic Changes Neurological: Cranial nerves II-XII grossly intact, Neuro grossly intact, Motor Exam 5/5 strength throughout Psych/Mental Status: Normal Affect, Appropriate - Physical Exam Vital Signs Temp Pulse Resp BP Pulse Ox 98.8 F 97 16 117/70 93 02/03/18 09:00 02/03/18 11:00 02/03/18 09:00 02/03/18 09:00 02/03/18 09:00 Oxygen Delivery Method Room Air Weight: 166 lb 7.184 oz Body Mass Index (BMI) 25.2 Intake and Output for Last 24 Hours 02/01/18 02/02/18 02/03/18 23:59 23:59 23:59 Intake Total 4706 / 4706 3495 / 3495 3114 / 3114 Output Total 350 / 350 200 / 200 1425 / 1425 Balance 4356 / 4356 3295 / 3295 1689 / 1689 Microbiology Past 72 Hours 02/01/18 14:00 Urine Culture - Final Urine, Clean Catch Culture exhibits no growth. 02/01/18 14:20 Blood Culture - Preliminary Blood Culture (Wb) - Left Hand No growth in 48 hours. 02/01/18 13:55 Blood Culture - Preliminary Blood Culture (Wb) - Anticubital Left No growth in 48 hours. 02/01/18 19:25 Respiratory Panel (PCR) - Final Mucosa - Nasopharyngeal 02/01/18 14:00 Streptococcus pneumoniae Antigen (M - Final Urine, Clean Catch 02/01/18 14:00 Legionella Antigen - Final Urine, Clean Catch Laboratory Tests Past 24 Hrs 02/03/18 02/03/18 05:40 05:40 WBC 6.2 RBC 3.43 L Hgb 11.3 L Hct 32.9 L MCV 95.9 H MCH 32.9 H MCHC 34.3 RDW 13.0 RDW Differential 45.4 H Plt Count 135 L MPV 10.5 Immature Gran % (Auto) 0.200 Neut % (Auto) 73.7 H Lymph % (Auto) 15.7 L [place] % (Auto) 10.1 H Eos % (Auto) 0.3 Baso % (Auto) 0.0 Absolute Neuts (auto) 4.6 Absolute Lymphs (auto) 0.98 Total Counted Not Reportable Sodium 137 Potassium 3.8 Chloride 104 Carbon Dioxide 23.0 Anion Gap 10 BUN 26 H Creatinine 1.25 Estim Creat Clear Calc 52.44 Est GFR (MDRD) Af Amer 73 Est GFR (MDRD) Non-Af 60 BUN/Creatinine Ratio 20.8 H Glucose 91 Calcium 7.7 L Phosphorus 1.4 L Magnesium 1.7 Code Visit Inpatient E&M: 71425 Disch Hosp
--- NOTE | 2018-02-08 12:00 | CASEMGMT ---
FOLLOW-UP CALL: No answer. Voicemail left with return contact information.
== END 2018-02-03 12:18 | disposition home or self-care (01) | DRG 871 ==
LOC: ED 14:08 → PCU 15:26
PROVIDERS: Physician Assistant; Admitting Provider Student in an Organized Health Care Education/Training Program; Emergency Provider Emergency Medicine; Visit Provider Internal Medicine
DX: A41.9 Sepsis, unspecified organism (principal); J18.9 Pneumonia, unspecified organism; N17.9 Acute kidney failure, unspecified; E87.1 Hypo-osmolality and hyponatremia; I50.22 Chronic systolic (congestive) heart failure; I42.9 Cardiomyopathy, unspecified; R65.20 Severe sepsis without septic shock; E87.6 Hypokalemia; Z23 Encounter for immunization; E83.42 Hypomagnesemia; E83.39 Other disorders of phosphorus metabolism; E86.1 Hypovolemia; T50.2X5A Adverse effect of carbonic-anhydrase inhibitors, benzothiadiazides and other diuretics, initial encounter; I11.0 Hypertensive heart disease with heart failure; Z95.3 Presence of xenogenic heart valve; E78.5 Hyperlipidemia, unspecified; I27.20 Pulmonary hypertension, unspecified
CPT/HCPCS: 36415; 71045; 80048; 80053; 81001; 83605; 83735; 84100; 85025; 85610; 85730; 87040; 87086; 87449; 87633; 93005; 93306; 97162; 97165; 97802; 99283; J7030; J7040; 90686; A4216

== ENCOUNTER → 2018-02-15 09:23 | Outpatient (CLI) | payer BC, SELFPAY ==
[2018-02-15 12:15] LABS: Absolute Lymphocyte Count 1.26 X10^3/ul (0.83-4.51); Absolute Neutrophil Count 3.5 X10^3/uL (2.0-7.7); Basophil# 0.02 X10^3/uL; Basophil% 0.4 % (0-1); Eosinophil# 0.04 X10^3/uL; Eosinophils% 0.7 % (0-5); Hematocrit 36.8 % (40-54); Hemoglobin 12.2 g/dl (13.0-16.5); Lymphocyte # 1.26 X10^3/ul (4.0); Mean Corp Hgb Conc 33.2 g/gl (32-36); Mean Corpuscular Hgb 32.4 pg (27.0-32.0); Mean Corpuscular Volume 97.9 fL (80-94); Mean Platelet Vol. 9.7 fl (6.2-12.0); Monocyte# 0.62 X10^3/uL; Monocyte% 11.3 % (0-10); Neutrophil # 3.53 X10^3/uL (2.7-7.7); Neutrophil % 64.4 % (47-70); POSITIVE COUNT NO; POSITIVE DIFFERENTIAL NO; POSITIVE MORPHOLOGY NO; Platelet Count 273 K/mm3 (150-450); RBC Distribution Width CV 13.7 % (11.6-14.6); RBC Distribution Width SD 49.1 fl (35.1-43.9); Red Blood Count 3.76 M/mm3 (4.6-6.2); White Blood Count 5.5 K/mm3 (4.4-11.0)
[2018-02-15 12:50] LABS: AST(SGOT) 21 U/L (15-37); Alanine Aminotransfer ALT/SGPT 30 U/L (16-61); Albumin, Serum 3.5 g/dL (3.2-5.0); Alkaline Phosphatase 79 U/L (45-117); Anion Gap 8 (5-15); BUN 26 mg/dL (7-18); BUN/Creat Ratio 19.1 RATIO (10-20); Calcium,Total 8.5 mg/dL (8.5-10.1); Chloride 105 mmol/L (98-107); Cholesterol 128 mg/dL (200); Creatinine, Serum 1.36 mg/dL (0.70-1.30); EST Glomerular Filtration Rate 55 mL/min (>60); Est Glom Filt Rate - Afr Amer 66 mL/min (>60); Globulin 3.5 g/dL (2.2-4.2); Glucose 86 mg/dL (74-106); High Density Lipoprotein 35 mg/dL; Potassium 4.1 mmol/L (3.5-5.1); Sodium Level 141 mmol/L (136-145); Triglycerides 114 mg/dL; Very Low Density Lipoprotein 23 mg/dL (5-40)
== END ==
PROVIDERS: Family Provider Family Medicine; PCP Family Medicine; Visit Provider Family Medicine
DX: I50.9 Heart failure, unspecified (principal); Z87.01 Personal history of pneumonia (recurrent)
CPT/HCPCS: 36415; 80053; 80061; 85025

== ENCOUNTER → 2018-08-05 08:56 | Outpatient (CLI) | payer BC, SELFPAY ==
[2018-02-18 13:14] VITALS: BMI 26.1
[2018-08-12 03:06] LABS: Alternaria alternata <0.10 kU/L (Class 0); Aspergillus fumigatus <0.10 kU/L (Class 0); Bahia Grass <0.10 kU/L (Class 0); Bermuda Grass <0.10 kU/L (Class 0); Bluegrass, Kentucky <0.10 kU/L (Class 0); Cat Hair/Dander, Standard <0.10 kU/L (Class 0); Cedar, Mountain <0.10 kU/L (Class 0); Cladosporium herbarum <0.10 kU/L (Class 0); Cockroach, American <0.10 kU/L (Class 0); D farinae Mite <0.10 kU/L (Class 0); D pteronyssinus <0.10 kU/L (Class 0); Dog Epithelia <0.10 kU/L (Class 0); Elm, American White <0.10 kU/L (Class 0); Hazelnut Tree <0.10 kU/L (Class 0); Hickory, White <0.10 kU/L (Class 0); Johnson Grass <0.10 kU/L (Class 0); Maple/Box Elder <0.10 kU/L (Class 0); Mucor racemosus <0.10 kU/L (Class 0); Mugwort <0.10 kU/L (Class 0); Mulberry, White <0.10 kU/L (Class 0); Oak, White <0.10 kU/L (Class 0); Penicillium chrysogen <0.10 kU/L (Class 0); Pigweed, Rough <0.10 kU/L (Class 0); Plantain, English <0.10 kU/L (Class 0); Ragweed, Short/Common <0.10 kU/L (Class 0); Sheep Sorrel(Dock) <0.10 kU/L (Class 0); Stemphylium herbarum <0.10 kU/L (Class 0); Sweet Gum <0.10 kU/L (Class 0); Sycamore, American <0.10 kU/L (Class 0)
[2018-08-12 12:22] LABS: Nettle <0.10 kU/L (Class 0)
== END ==
PROVIDERS: Family Provider Family Medicine; PCP Family Medicine; Referring Provider Family Medicine; Visit Provider Family Medicine
DX: L20.9 Atopic dermatitis, unspecified (principal)
CPT/HCPCS: 36415; 86003

== ENCOUNTER → 2020-03-05 14:42 | Outpatient (CLI) | payer BC, SELFPAY ==
[2020-02-20 12:09] VITALS: BMI 27.6
--- NOTE | 2020-03-05 14:54 | ECHOD_ITS ---
Reason For Study: MURMUR Procedure This was a 2D Doppler, Color Flow transthoracic echocardiogram. Exam performed in department. Left Ventricle Normal LV size. Left ventricular systolic function is normal. The estimated ejection fraction is 55 %. Stage 1 diastolic dysfunction. No regional wall motion abnormalities noted. Right Ventricle Normal RV size. Normal systolic function. Tricuspid Valve Normal tricuspid valve. Mild (1+) tricuspid valve insufficiency. Pulmonary artery systolic pressure is 30 mmHg. Aortic Valve Peak aortic valve gradient 37 mmHg. Mean aortic valve gradient 23 mmHg. Mild (1+) aortic valve insufficiency. Bioprosthetic aortic valve. Pulmonic Valve Normal pulmonic valve. Great Vessels Normal aortic root. The pulmonary artery is normal size. Normal inferior vena cava. Pericardium/Pleural No pericardial effusion. MMode/2D Measurements & Calculations LVIDd: 4.5 cm IVSd: 1.4 cm Ao root diam: 3.8 cm LVIDs: 2.9 cm LVPWd: 1.0 cm RVDd: 3.6 cm FS: 35.4 % LAV(MOD-bp): 48.6 ml LA dimension(2D): 4.2 cm LA A4 area: 16.4 cm2 LAV(MOD-bp) Indexed: 24.8 ml/m2 LAV(MOD-sp2): 49.2 ml LAV(MOD-sp4): 47.0 ml RA A4 area: 15.6 cm2 Time Measurements MV dec time: 0.13 sec Doppler Measurements & Calculations MV E max otto: 52.0 cm/sec Lat Peak E' Otto: 3.8 cm/sec Med Peak E' Otto: 6.4 cm/sec MV A max otto: 70.1 cm/sec E/E' lat: 13.6 E/E' med: 8.2 MV E/A: 0.74 Ao V2 max: 304.2 cm/sec LV V1 max: 81.9 cm/sec PA V2 max: 53.8 cm/sec Ao max P.0 mmHg LV V1 max P.7 mmHg Ao V2 mean: 231.4 cm/sec LV V1 mean P.6 mmHg Ao mean P.0 mmHg LV V1 mean: 60.5 cm/sec Ao V2 VTI: 69.5 cm LV V1 VTI: 18.9 cm TR max otto: 255.8 cm/sec TR max P.2 mmHg Interpretation Summary Normal LV size. Left ventricular systolic function is normal. The estimated ejection fraction is 55 %. Bioprosthetic aortic valve. Mild (1+) aortic valve insufficiency. Stage 1 diastolic dysfunction. Pulmonary artery systolic pressure is 30 mmHg. Ordering Physician: Michael Mcgraw Referring Physician: Sumanth Hernández Performed By: Patsy Mcneal RDCS, RVT
== END ==
PROVIDERS: PCP Family Medicine; Referring Provider Internal Medicine Cardiovascular Disease; Visit Provider Internal Medicine Cardiovascular Disease
DX: R01.1 Cardiac murmur, unspecified (principal); Z95.2 Presence of prosthetic heart valve
CPT/HCPCS: 93306

== ENCOUNTER → 2021-01-09 08:04 | Outpatient (CLI) | payer BC, SELFPAY ==
[2021-01-09 10:31] LABS: Anion Gap 3 (5-15); BUN 22 mg/dL (7-18); BUN/Creat Ratio 17.2 RATIO (10-20); Calcium,Total 8.8 mg/dL (8.5-10.1); Chloride 107 mmol/L (98-107); Cholesterol 148 mg/dL (200); Creatinine, Serum 1.28 mg/dL (0.70-1.30); EST Glomerular Filtration Rate 58 mL/min (>60); Est Glom Filt Rate - Afr Amer 71 mL/min (>60); Glucose 85 mg/dL (74-106); High Density Lipoprotein 37 mg/dL; PSA,Total - Annual Screen 1.17 ng/mL (0.00-4.00); Potassium 4.2 mmol/L (3.5-5.1); Sodium Level 140 mmol/L (136-145); Triglycerides 158 mg/dL; Very Low Density Lipoprotein 32 mg/dL (5-40)
== END ==
PROVIDERS: PCP Family Medicine; Referring Provider Family Medicine; Visit Provider Family Medicine
DX: Z00.00 Encounter for general adult medical examination without abnormal findings (principal)
CPT/HCPCS: 36415; 80048; 80061; 84153; G0103

== ENCOUNTER → 2022-09-23 | Outpatient (CLI) | payer BC, SELFPAY ==
[2022-09-23 15:02] LABS: Absolute Lymphocyte Count 1.81 X10^3/uL (0.83-4.51); Absolute Neutrophil Count 3.7 X10^3/uL (2.0-7.7); Basophil# 0.03 X10^3/uL; Basophil% 0.5 % (0-1); Eosinophil# 0.14 X10^3/uL; Eosinophils% 2.2 % (0-5); Hematocrit 46.3 % (40-54); Hemoglobin 15.4 g/dL (13.0-16.5); Lymphocyte # 1.81 X10^3/ul (0.83-4.51); Lymphocyte % 28.5 % (19-41); Mean Corp Hgb Conc 33.3 g/dL (32-36); Mean Corpuscular Hgb 33.6 pg (27.0-32.0); Mean Corpuscular Volume 100.9 fL (80-94); Mean Platelet Vol. 9.7 fl (6.2-12.0); Monocyte# 0.65 X10^3/uL; Monocyte% 10.2 % (0-10); NRBC Flagged by Analyzer 0 % (0-5); Neutrophil # 3.71 X10^3/uL (2.7-7.7); Neutrophil % 58.3 % (47-70); Platelet Count 143 K/mm3 (150-450); RBC Distribution Width CV 13.2 % (11.6-14.6); RBC Distribution Width SD 49.1 fl (35.1-43.9); Red Blood Count 4.59 M/mm3 (4.6-6.2); White Blood Count 6.4 K/mm3 (4.4-11.0)
[2022-09-23 15:32] LABS: Anion Gap 3 (5-15); BUN 27 mg/dL (7-18); BUN/Creat Ratio 21.1 RATIO (10-20); Calcium,Total 9.3 mg/dL (8.5-10.1); Chloride 109 mmol/L (98-107); Creatinine, Serum 1.28 mg/dL (0.70-1.30); EST Glomerular Filtration Rate 58 mL/min (>60); Est Glom Filt Rate - Afr Amer 70 mL/min (>60); Glucose 85 mg/dL (74-106); Potassium 4.2 mmol/L (3.5-5.1); Sodium Level 139 mmol/L (136-145); Thyroid Stim Hormone (TSH) 2.98 uIU/mL (0.358-3.74)
== END | disposition home or self-care (01) ==
LOC: LAB 13:32
PROVIDERS: PCP Family Medicine; Referring Provider Nurse Practitioner Gerontology; Visit Provider Nurse Practitioner Gerontology
DX: R53.83 Other fatigue (principal)
CPT/HCPCS: 36415; 80048; 84443; 85025

== ENCOUNTER → 2023-01-13 | Outpatient (CLI) | payer BC, SELFPAY ==
[2023-01-13 10:37] LABS: Anion Gap 3 (5-15); BUN 28 mg/dL (7-18); Calcium,Total 8.9 mg/dL (8.5-10.1); Chloride 108 mmol/L (98-107); Cholesterol 139 mg/dL (200); Creatinine, Serum 1.27 mg/dL (0.70-1.30); EST Glomerular Filtration Rate 59 mL/min (>60); Est Glom Filt Rate - Afr Amer 71 mL/min (>60); Glucose 86 mg/dL (74-106); High Density Lipoprotein 36 mg/dL; PSA,Total - Annual Screen 1.39 ng/mL (0.00-4.00); Potassium 4.2 mmol/L (3.5-5.1); Sodium Level 138 mmol/L (136-145); Triglycerides 199 mg/dL; Very Low Density Lipoprotein 40 mg/dL (5-40)
== END | disposition home or self-care (01) ==
LOC: MFPLAB 09:28
PROVIDERS: PCP Family Medicine; Visit Provider Family Medicine
DX: Z00.00 Encounter for general adult medical examination without abnormal findings (principal); Z12.5 Encounter for screening for malignant neoplasm of prostate
CPT/HCPCS: 36415; 80048; 80061; 84153; G0103

== ENCOUNTER → 2023-10-22 | Outpatient (CLI) | payer BC, SELFPAY ==
[2023-10-22 17:52] LABS: ALB/GLOB Ratio 1.1 RATIO (0.9-2.4); AST(SGOT) 16 U/L (15-37); Alanine Aminotransfer ALT/SGPT 19 U/L (16-61); Albumin, Serum 3.8 g/dL (3.2-5.0); Alkaline Phosphatase 63 U/L (45-117); Anion Gap 6 (5-15); BUN 24 mg/dL (7-18); BUN/Creat Ratio 17.8 RATIO (10-20); Calcium,Total 8.9 mg/dL (8.5-10.1); Chloride 107 mmol/L (98-107); Cholesterol 128 mg/dL (200); Creatinine, Serum 1.35 mg/dL (0.70-1.30); EST Glomerular Filtration Rate 54 mL/min (>60); Est Glom Filt Rate - Afr Amer 66 mL/min (>60); Globulin 3.5 g/dL (2.2-4.2); Glucose 95 mg/dL (74-106); High Density Lipoprotein 33 mg/dL; PSA,Total - Annual Screen 1.55 ng/mL (0.00-4.00); Potassium 3.9 mmol/L (3.5-5.1); Protein, Total 7.3 g/dL (6.4-8.2); Sodium Level 138 mmol/L (136-145); Triglycerides 167 mg/dL; Very Low Density Lipoprotein 33 mg/dL (5-40)
== END | disposition home or self-care (01) ==
LOC: MFPLAB 15:05
PROVIDERS: PCP Family Medicine; Visit Provider Family Medicine
DX: Z00.00 Encounter for general adult medical examination without abnormal findings (principal)
CPT/HCPCS: 36415; 80053; 80061; 84153; G0103

== ENCOUNTER → 2024-01-19 | Outpatient (CLI) | payer BC, SELFPAY ==
[2024-01-19 13:23] LABS: Anion Gap 8 (5-15); BUN 25 mg/dL (7-18); BUN/Creat Ratio 21.9 RATIO (10-20); Calcium,Total 9.4 mg/dL (8.5-10.1); Chloride 107 mmol/L (98-107); Creatinine, Serum 1.14 mg/dL (0.70-1.30); EST Glomerular Filtration Rate 66 mL/min (>60); Est Glom Filt Rate - Afr Amer 80 mL/min (>60); Glucose 84 mg/dL (74-106); Potassium 3.9 mmol/L (3.5-5.1); Sodium Level 139 mmol/L (136-145)
== END | disposition home or self-care (01) ==
LOC: MFPLAB 09:55
PROVIDERS: PCP Family Medicine; Visit Provider Family Medicine
DX: Z00.00 Encounter for general adult medical examination without abnormal findings (principal)
CPT/HCPCS: 36415; 80048

== ENCOUNTER → 2024-07-13 | Outpatient (CLI) | payer BC, SELFPAY ==
--- NOTE | 2024-07-13 14:22 | ECHOD_ITS ---
Reason For Study Reason For Study: VALVE REPLACEMENT Procedure This was a 2D Doppler, Color Flow transthoracic echocardiogram. Exam performed in department. Left Ventricle Normal LV size. Left ventricular systolic function is normal. The left ventricular ejection fraction is 55 %. No regional wall motion abnormalities noted. Right Ventricle Normal right ventricle. Normal systolic function. Atria Normal left atrium. Normal right atrium. Mitral Valve Bileaflet diffuse mitral valve thickening. Tricuspid Valve Normal tricuspid valve. Mild (1+) tricuspid valve insufficiency. Pulmonary artery systolic pressure is 28 mmHg. Aortic Valve Peak aortic valve gradient 21 mmHg. Mean aortic valve gradient 13 mmHg. Trivial aortic valve insufficiency. Bioprosthetic aortic valve. Pulmonic Valve The pulmonic valve is not well visualized. Great Vessels Normal aortic root. The pulmonary artery is normal size. Inferior vena cava collapse with respiration. Pericardium/Pleural No pericardial effusion. MMode/2D Measurements & Calculations LVIDd: 5.1 cm IVSd: 1.6 cm LVOT diam: 2.0 cm LVIDs: 3.9 cm LVPWd: 1.0 cm LVOT area: 3.2 cm2 FS: 24.0 % LAV(MOD-bp): 61.6 ml LVAd ap4: 30.2 cm2 SV(MOD-sp4): 47.8 ml LAV(MOD-bp) Indexed: 30.8 ml/m2 LVLd ap4: 8.3 cm SI(MOD-sp4): 23.9 ml/m2 LAV(MOD-sp2): 81.7 ml EDV(MOD-sp4): 91.3 ml LAV(MOD-sp4): 44.2 ml EDV(sp4-el): 93.1 ml LVAs ap4: 19.6 cm2 LVLs ap4: 7.8 cm ESV(MOD-sp4): 43.5 ml ESV(sp4-el): 41.9 ml EF(MOD-sp4): 52.3 % EF(sp4-el): 55.0 % SV(sp4-el): 51.2 ml LA A4 area: 16.0 cm2 LA dimension(2D): 4.8 cm RA A4 area: 13.0 cm2 Time Measurements MV dec time: 0.30 sec Doppler Measurements & Calculations MV E max otto: 35.2 cm/sec Lat Peak E' Otto: 11.1 cm/sec Med Peak E' Otto: 4.4 cm/sec MV A max otto: 70.3 cm/sec E/E' lat: 3.2 E/E' med: 8.0 MV E/A: 0.50 MV V2 max: 89.4 cm/sec Ao V2 max: 230.7 cm/sec MV max P.2 mmHg MV dec slope: 116.1 cm/sec2 Ao max P.3 mmHg MV V2 mean: 47.8 cm/sec Ao V2 mean: 173.8 cm/sec MV mean P.1 mmHg Ao mean P.5 mmHg MV V2 VTI: 36.1 cm Ao V2 VTI: 47.0 cm AV (velocity ratio): 0.74 MVA(VTI): 3.0 cm2 THUY(I,D): 2.3 cm2 THUY(V,D): 2.3 cm2 LV V1 max: 169.8 cm/sec SV(LVOT): 110.2 ml PA V2 max: 91.1 cm/sec LV V1 max P.5 mmHg PA V2 mean: 60.5 cm/sec LV V1 mean P.4 mmHg LV V1 mean: 117.5 cm/sec LV V1 VTI: 34.7 cm TR max otto: 245.6 cm/sec TR max P.1 mmHg ECHO/Echo Complete Interpretation Summary Normal LV size. Left ventricular systolic function is normal. The left ventricular ejection fraction is 55 %. Bioprosthetic aortic valve. Mean aortic valve gradient 13 mmHg. Ordering Physician: Syl Ortega Referring Physician: Syl Ortega Performed By: Cornelia Carter RCS
== END | disposition home or self-care (01) ==
LOC: CVS 14:18
PROVIDERS: PCP Family Medicine; Referring Provider Physician Assistant Medical; Visit Provider Physician Assistant Medical
DX: Z95.2 Presence of prosthetic heart valve (principal)
CPT/HCPCS: 93306

== ENCOUNTER → 2025-03-30 | Outpatient (CLI) | payer BC, SELFPAY ==
--- OUTSIDE RECORDS SUMMARY | 2025-03-30 16:45 | XMS RPT_ITS | CCD ---
Author Organization [facility] Care Team Providers Care Greenhouse Superintendent Name Role Phone Raven RN, Alexandra Guardado Unavailable Unavailable Raven RN, Alexandra Guardado Unavailable Unavailable Arabella Colmenares Unavailable Arabella Colmenares Unavailable Edin Deluca Unavailable Unavailable Dr. Sumanth Hernández Primary Care Provider Dr. Sumanth Hernández Referring Provider Rafi UBCK, DAMARIS Duarte Attending Provider Dr. Sumanth Hernández MD Primary Care Provider [phone] Dr. Sumanth Hernández MD Referring Provider [phone] Syl Leahy Attending Provider Syl Leahy Referring Provider Dr. Michael Mcgraw MD Attending Provider Syl Ortega Attending UnavailSyl Sands Referring UnavailSumanth Riojas Primary Care Unavailable Sumanth Hernández Primary Care Unavailable Sumanth Hernández Attending Unavailable Sumanth Hernández Attending Unavailable Sumanth Hernández Primary Care Unavailable Sumanth Hernández Referring Unavailable Syl Ortega Attending UnavailSumanth Riojas Primary Care Unavailable Sumanth Hernández Primary Care Unavailable Michael Mcgraw Attending Unavailable Medications Current Medications Medication Drug Class(es) Dates Sig (Normalized) Sig (Original) amoxicillin 500 mg oral tablet (7 sources) Penicillin-class Antibacterial Start: 02-18-2018 take 4 tablets by mouth once as needed Amoxicillin 500 mg tablet Active 2000 mg PO ONCE as needed February 18, 2018 1:00am Start: 02-18-2018 take 2000 mg by mouth once [place] xicillin Active 2000 MG PO ONCE February 18, 2018 1:00am Start: 05-02-2013 take 4 capsules by m outh every hour AMOXICILLIN 500 MG TABS 4 capsules by mouth 1 hour prior to dental appt. AMOXICILLIN [id number] Alexandra Carbajal RN carvedilol 6.25 mg oral tablet (20 sources) alpha-Adrenergic Yvette, beta-Adrenergic Yvette Start: 05-02-2013 End: 06-15-2024 take 1 tablet by mouth twice daily Carvedilol 6.25 mg tablet Active 6.25 mg PO TWICE A DAY 180 June 15, 2024 4:02pm Start: 05-02-2013 take 1 tablet by sandra th twice daily at mealtime CARVEDILOL 3.125 MG TABS One tablet by mouth twice daily with meals CARVEDILOL [id number] Michael Mcgraw MD lisinopril 40 mg oral tablet (20 sources) Angiotensin Converting Enzyme Inhibitor Start: 06-17-2021 End: 07-04-2024 take 1 tablet by mouth at bedtime Lisinopril 40 mg tablet Active 40 mg PO AT BEDTIME July 04, 2024 3:27pm Start: 10-27-2018 End: 06-17-2021 take 1 tablet by mouth at bedtime Lisinopril 20 mg tablet Discontinued 20 mg PO AT BEDTIME 90 September 17, 2020 1:19pm June 17, 2021 2:27pm Start: 03-26-2017 End: 07-06-2017 Lisinopril 20 mg tablet Disc ontinued PO 90 March 26, 2017 1:00am July 06, 2017 3:10pm Start: 05-03-2013 End: 07-01-2018 take 1 tablet by mouth once daily Lisinopril 20 mg tablet Discontinued 20 mg PO daily 90 July 06, 2017 3:11pm June 30, 2018 12:00am July 01, 2018 12:08am Start: 05-03-2013 take 1 tablet by sandra th once daily LISINOPRIL 5 MG TABS One tablet by mouth daily LISINOPRIL [id number] Michael Mcgraw MD Start: 05-03-2013 take 1 tablet by sandra th once daily LISINOPRIL 10 MG TABS One tablet by mouth daily LISINOPRIL [id number] Michael Mcgraw MD Start: 03-02-2013 End: 03-26-2017 take 1 tablet by mouth once daily Lisinopril 2.5 MG tablet Discontinued 2.5 mg PO DAILY March 02, 2013 1:00am March 26, 2017 11:15am Completed/Discontinued Medications Medication Drug Class(es) Dates Sig (Normalized) Sig (Original) acetaminophen 325 mg / oxyCODONE hydrochloride 5 mg oral tablet (10 sources) Opioid Agonist Start: 05-02-2013 End: 05-03-2013 take 1-2 tablets by mouth every six hours as needed OXYCODONE-ACETAMI NOPHEN 5-325 MG TABS 1-2 tablets by mouth every 6 hours as needed OXYCODONE-ACETAMI NOPHEN [id number] Alexandra Carbajal RN amLODIPine 5 mg oral tablet (2 sources) Dihydropyridine Calcium Channel Yvette Start: 07-08-2021 End: 09-23-2022 take 1 tablet by mouth once daily Amlodipine 5 mg tablet Discontinued 5 mg PO DAILY July 08, 2021 12:00am September 23, 2022 1:00pm aspirin 81 mg oral tablet (20 sources) Platelet Aggregation Inhibitor, Nonsteroidal Anti-inflammatory Drug Start: 05-02-2013 End: 03-21-2015 take 1 tablet by mouth once daily ASPIRIN 81 MG TABS One tablet by mouth daily ASPIRIN [id number] Syl Ortega PA-C docusate sodium 100 mg oral tablet (10 sources) Start: 05-02-2013 End: 09-05-2013 take 1 tablet by mouth twice daily as needed DOCUSATE SODIUM 100 MG TABS One tablet by mouth twice daily as needed DOCUSATE SODIUM [id number] Alexandra Carbajal RN furosemide 20 mg oral tablet (12 sources) Loop Diuretic Start: 05-02-2013 End: 09-05-2013 take 1 tablet by mouth once daily LASIX 20 MG TABS One tablet by mouth daily FUROSEMIDE [id number] Alexandra Carbajal RN Start: 03-02-2013 End: 03-26-2017 take 1 tablet by mouth once daily Furosemide 40 MG tablet Discontinued 40 mg PO DAILY March 02, 2013 1:00am March 26, 2017 11:14am hydroCHLOROthiazide 25 mg oral tablet (14 sources) Thiazide Diuretic Start: 03-26-2017 End: 10-14-2017 Hydrochlorothiazide 25 mg tablet Discontinued PO March 26, 2017 1:00am October 14, 2017 4:30pm Start: 09-15-2016 End: 09-23-2022 take 1 tablet by mouth once daily in the morning Hydrochlorothiazide 25 mg tablet Discontinued 25 mg PO EVERY MORNING October 14, 2017 4:29pm October 27, 2018 9:23am levoFLOXacin 750 mg oral tablet (2 sources) Quinolone Antimicrobial Start: 02-03-2018 End: 02-18-2018 take 1 tablet by mouth once daily Levofloxacin 750 MG tablet Discontinued 750 mg PO DAILY February 03, 2018 12:00am February 18, 2018 3:06pm POTASSIUM CHLORIDE SABINE CR (10 sources) Start: 05-02-2013 End: 05-03-2013 take 1 tablet by mouth once daily KLOR-CON M20 20 MEQ CR-TABS One tablet by mouth daily POTASSIUM CHLORIDE SABINE CR [id number] Michael Mcgraw MD Start: 05-02-2013 take 1 tablet by sandra th once daily KLOR-CON M20 20 MEQ CR-TABS One tablet by mouth daily POTASSIUM CHLORIDE SABINE CR [id number] Alexandra Carbajal RN Start: 05-02-2013 End: 05-03-2013 take 1 tablet by mouth once daily KLOR-CON M20 20 MEQ CR-TABS One tablet by mouth daily POTASSIUM CHLORIDE SABINE CR [id number] Michael Mcgraw MD spironolactone 25 mg oral tablet (1 source) Aldosterone Antagonist Start: 06-15-2024 End: 07-18-2024 take 1 tablet by mouth once daily Spironolactone 25 mg tablet Discontinued 25 mg PO DAILY June 15, 2024 1:00am July 18, 2024 12:37pm Problems Active Problems Problem Classification Problem Date Documented Da te Episodic/Chronic Cardiac and circulatory congenital anomalies (7 sources) Bicuspid aortic valve; Translations: [Congenital insufficiency of aortic valve] Onset: 05-02-2013 05-02-2013 Chronic Congestive heart failure; nonhypertensive (15 sources) Chronic systolic heart failure; Translations: [Congestive heart failure] Onset: 05-02-2013 Resolved: 09-12-2015 09-18-2014 Chronic Essential hypertension (15 sources) Hypertensive disorder; Translations: [Essential hypertension] Onset: 05-02-2013 05-02-2013 Chronic Fever of unknown origin (2 sources) Fever; Translations: [Fever, unspecified] 02-18-2018 Episodic Heart valve disorders (20 sources) Nonrheumatic aortic (valve) insufficiency; Translations: [Aortic valve regurgitation] Onset: 04-03-2013 09-12-2015 Chronic Comment on above: AVR w/ 25 mm pericar dial valve and aortoplasty of the ascending aorta 04/03/13 Malaise and fatigue (5 sources) Fatigue; Translations: [Other fatigue] 09-23-2022 Episodic Other and ill-defined heart disease (2 sources) Diastolic dysfunction; Translations: [Other ill-defined heart diseases] 10-26-2018 Chronic Slime-; endo-; and myocarditis; cardiomyopathy (except that caused by tuberculosis or sexually transmitted disease) (5 sources) Cardiomyopathy in diseases classified elsewhere; Translations: [Cardiomyopathy in diseases classified elsewhere] Onset: 09-12-2015 09-12-2015 Chronic Unclassified (1 source) Replacement of aortic valve ; Translations: [Presence of prosthetic heart valve] Onset: 05-02-2013 03-21-2015 Unclassified (6 sources) Finding of body mass index; Translations: [Body mass index (BMI) 27.0-27.9, adult] Onset: 09-18-2014 03-11-2016 Past or Other Problems Problem Classification Problem Date Documented Da te Episodic/Chronic Other nutritional; endocrine; and metabolic disorders (4 sources) Body mass index (BMI) 27.0-27.9, adult; Translations: [Body mass index (BMI) 26.0-26.9, adult] Onset: 09-18-2014 03-11-2016 Episodic Results Test Name Value Interpretation Reference Range Facility Echo Complete 07-13-[address] [facility] [address] [place] [address] Echo Complete 07/13/24 1436 MR#: [id number] Acct: [id number] Name: CYN ALAMO Rep #: [id number] : 1945 79 From: Michael Mcgraw MD Attending Dr: DEBBIE Patel Status: REG CLI Ordering Dr: Syl Ortega Date: 07/04 Location: [facility] Sex: M C Admitted: Reason For Study Reason For Study: VALVE REPLACEMENT Procedure This was a 2D Doppler, Color Flow transthoracic echocardiogram. Exam performed in department. Left Ventricle Normal LV size. Left ventricular systolic function is normal. The left ventricular ejection fraction is 55 %. No regional wall motion abnormalities noted. Right Ventricle Normal right ventricle. Normal systolic function. Atria Normal left atrium. Normal right atrium. Mitral Valve Bileaflet diffuse mitral valve thickening. Tricuspid Valve Normal tricuspid valve. Mild (1+) tricuspid valve insufficiency. Pulmonary artery systolic pressure is 28 mmHg. Aortic Valve Peak aortic valve gradient 21 mmHg. Mean aortic valve gradient 13 mmHg. Trivial aortic valve insufficiency. Bioprosthetic aortic valve. Pulmonic Valve The pulmonic valve is not well visualized. Great Vessels Normal aortic root. The pulmonary artery is normal size. Inferior vena cava collapse with respiration. Pericardium/Pleural No pericardial effusion. MMode/2D Measurements Calculations LVIDd: 5.1 cm IVSd: 1.6 cm LVOT diam: 2.0 cm LVIDs: 3.9 cm LVPWd: 1.0 cm LVOT area: 3.2 cm2 FS: 24.0 % __ LAV(MOD-bp): 61.6 ml LVAd ap4: 30.2 cm2 SV(MOD-sp4): 47.8 ml LAV(MOD-bp) Indexed: 30.8 ml/m2 LVLd ap4: 8.3 cm SI(MOD-sp4): 23.9 ml/m2 LAV(MOD-sp2): 81.7 ml EDV(MOD-sp4): 91.3 ml LAV(MOD-sp4): 44.2 ml EDV(sp4-el): 93.1 ml LVAs ap4: 19.6 cm2 LVLs ap4: 7.8 cm ESV(MOD-sp4): 43.5 ml ESV(sp4-el): 41.9 ml EF(MOD-sp4): 52.3 % EF(sp4-el): 55.0 % __ SV(sp4-el): 51.2 ml LA A4 area: 16.0 cm2 LA dimension(2D): 4.8 cm __ RA A4 area: 13.0 cm2 Time Measurements MV dec time: 0.30 sec Doppler Measurements Calculations MV E max otto: 35.2 cm/sec Lat Peak E' Otto: 11.1 cm/sec Med Peak E' Otto: 4.4 cm/sec MV A max otto: 70.3 cm/sec E/E' lat: 3.2 E/E' med: 8.0 MV E/A: 0.50 __ MV V2 max: 89.4 cm/sec Ao V2 max: 230.7 cm/sec MV max P.2 mmHg MV dec slope: 116.1 cm/sec2 Ao max P.3 mmHg MV V2 mean: 47.8 cm/sec Ao V2 mean: 173.8 cm/sec MV mean P.1 mmHg Ao mean P.5 mmHg MV V2 VTI: 36.1 cm Ao V2 VTI: 47.0 cm AV (velocity ratio): 0.74 MVA(VTI): 3.0 cm2 THUY(I,D): 2.3 cm2 THUY(V,D): 2.3 cm2 __ LV V1 max: 169.8 cm/sec SV(LVOT): 110.2 ml PA V2 max: 91.1 cm/sec LV V1 max P.5 mmHg PA V2 mean: 60.5 cm/sec LV V1 mean P.4 mmHg LV V1 mean: 117.5 cm/sec LV V1 VTI: 34.7 cm __ TR max otto: 245.6 cm/sec TR max P.1 mmHg ECHO/Echo Complete Interpretation Summary Normal LV size. Left ventricular systolic function is normal. The left ventricular ejection fraction is 55 %. Bioprosthetic aortic valve. Mean aortic valve gradient 13 mmHg. __ Ordering Physician: Syl Ortega Referring Physician: Syl Ortega Performed By: Cornelia Carter RCS 07/13/24 1701 Date Michael Mcgraw MD CC: Dr. Sumanth Hernández MD; DEBBIE Patel Date Dictated: 07/13/24 143 Date Transcribed: 07/13/241700 Long Chain Beamer: Signed Normal [facility] Echocardiogram study reportO rdered By: Michael Mcgraw on 07-13-2024 Study report [facility] [address] [place] [address] Echo Complete 07/13/24 1436 MR#: [id number] Acct: [id number] Name: CYN ALAMO Rep #:[id number] : 1945 79 From: Michael Briseno Attending Dr: DEBBIE Patel Status: REG CLI Ordering Dr: Syl Ortega Date: 07/13/24 Location: [facility] Sex: M C Admitted: Reason For Study Reason For Study: VALVE REPLACEMENT Procedure This was a 2D Doppler, Color Flow transthoracic echocardiogram. Exam performed in department. Left Ventricle Normal LV size. Left ventricular systolic function is normal. The left ventricular ejection fraction is 55 %. No regional wall motion abnormalities noted. Right Ventricle Normal right ventricle. Normal systolic function. Atria Normal left atrium. Normal right atrium. Mitral Valve Bileaflet diffuse mitral valve thickening. Tricuspid Valve Normal tricuspid valve. Mild (1+) tricuspid valve insufficiency. Pulmonary artery systolic pressure is 28 mmHg. Aortic Valve Peak aortic valve gradient 21 mmHg. Mean aortic valve gradient 13 mmHg. Trivial aortic valve insufficiency. Bioprosthetic aortic valve. Pulmonic Valve The pulmonic valve is not well visualized. Great Vessels Normal aortic root. The pulmonary artery is normal size. Inferior vena cava collapse with respiration. Pericardium/Pleural No pericardial effusion. MMode/2D Measurements & Calculations LVIDd: 5.1 cm IVSd: 1.6 cm LVOT diam: 2.0 cm LVIDs: 3.9 cm LVPWd: 1.0 cm LVOT area: 3.2 cm2 FS: 24.0 % ____ LAV(MOD-bp): 61.6 ml LVAd ap4: 30.2 cm2 SV(MOD-sp4): 47.8 ml LAV(MOD-bp) Indexed: 30.8 ml/m2 LVLd ap4: 8.3 cm SI(MOD-sp4): 23.9 ml/m2 LAV(MOD-sp2): 81.7 ml EDV(MOD-sp4): 91.3 ml LAV(MOD-sp4): 44.2 ml EDV(sp4-el): 93.1 ml LVAs ap4: 19.6 cm2 LVLs ap4: 7.8 cm ESV(MOD-sp4): 43.5 ml ESV(sp4-el): 41.9 ml EF(MOD-sp4): 52.3 % EF(sp4-el): 55.0 % ____ SV(sp4-el): 51.2 ml LA A4 area: 16.0 cm2 LA dimension(2D): 4.8 cm __ RA A4 area: 13.0 cm2 Time Measurements MV dec time: 0.30 sec Doppler Measurements & Calculations MV E max otto: 35.2 cm/sec Lat Peak E' Otto: 11.1 cm/sec Med Peak E' Otto: 4.4 cm/sec MV A max otto: 70.3 cm/sec E/E' lat: 3.2 E/E' med: 8.0 MV E/A: 0.50 __ MV V2 max: 89.4 cm/sec Ao V2 max: 230.7 cm/sec MV max P.2 mmHg MV dec slope: 116.1 cm/sec2 Ao max P.3 mmHg MV V2 mean: 47.8 cm/sec Ao V2 mean: 173.8 cm/sec MV mean P.1 mmHg Ao mean P.5 mmHg MV V2 VTI: 36.1 cm Ao V2 VTI: 47.0 cm AV (velocity ratio): 0.74 MVA(VTI): 3.0 cm2 THUY(I,D): 2.3 cm2 THUY(V,D): 2.3 cm2 ____ LV V1 max: 169.8 cm/sec SV(LVOT): 110.2 ml PA V2 max: 91.1 cm/sec LV V1 max P.5 mmHg PA V2 mean: 60.5 cm/sec LV V1 mean P.4 mmHg LV V1 mean: 117.5 cm/sec LV V1 VTI: 34.7 cm ____ TR max otto: 245.6 cm/sec TR max P.1 mmHg ECHO/Echo Complete Interpretation Summary Normal LV size. Left ventricular systolic function is normal. The left ventricular ejection fraction is 55 %. Bioprosthetic aortic valve. Mean aortic valve gradient 13 mmHg. __ Ordering Physician: Syl Ortega Referring Physician: Syl Ortega Performed By: Cornelia Carter RCS 07/13/24 1701 Date _ Michael Mcgraw MD CC: Dr. Sumanth Hernández MD; DEBBIE Patel ~ Date Dictated: 07/13/24 1436 Date Transcribed: 07/13/24 1701 Long Chain Beamer: Signed [facility] Work Phone: Cardiology Visit Reporton Cardiology Visit Report [facility] [address] [place] [address] OFFICE VISIT Date of Service: 06/15/24 MR#: [id number] Acct: [id number] Name: CYN ALAMO Rep #: [id number] : 1945 Provider: DEBBIE Karimi Age/Sex: 79/M Location: [facility] [place] [facility] Status: Signed HPI HPI History of Present Illness Details: CYN ALAMO, is a 79 M who presents to the office today for follow-up visit. 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 His ejection fraction at that time was noted to be 30%. An echocardiogram which was performed during that visit demonstrated an ejection fraction of 65%. Peak gradient across the aortic valve was noted to be 61 mm with a mean gradient of 38 mm. His calculated aortic valve area is 1.5 cm square. His last echocardiogram was in February 2020 estimated at 55%. The peak mean gradient was 37/23 mmHg. He was last in the office at 2022. From a cardiac standpoint, the patient is doing well. He denies any palpitations, chest pain, pressure or heaviness. He denies SOB, Orthopnea, and PND. He does not have bleeding issues; no blood in urine, stool or nosebleeds. He does acknowledge a decrease in energy level-he attributes this to his age. He denies myalgias, or claudication. He does not have edema, or sudden weight gain. He denies dizziness, lightheadedness, syncopal or near syncopal episodes, and headaches. He has not been taking his blood pressure readings at home. He is still working. Intake Vital Signs 09/23/22 12:58 06/15/24 07:44 Height 5 ft 9 in 5 ft 9 in Weight: 181 lb BMI 26.7 BP 169/100 H Blood Pressure Location Lt brachial Position Sitting Respiration 18 Pulse 54 L Pulse Source Monitor Pulse Oximetry (%) 98 Intake Visit Reasons: OVERDUE FOR OV/LAST SEEN 10/02 Loan Associate Required: No Is patient in pain?: No Allergies No Known Allergies Allergy (Verified 06/15/24 14:37) Medications ???Medication ???Instructions ???Recorded ???Confirmed ???Type amoxicillin 500 mg tablet 2,000 mg PO ONCE PRN 02/18/18 03/10/04 History carvedilol 6.25 mg tablet 6.25 mg PO BID #180 TABLETS 06/15/24 Rx lisinopril 40 mg tablet 40 mg PO QHS #90 tabs 06/15/2410/04 Rx spironolactone 25 mg tablet 25 mg PO DAILY #90 tabs 06/15/24 0 06/15/24 Rx Ejection fraction %: 55 Have you fallen in the past year?: Yes [facility] Medical History (Updated 06/15/24 @ 14:54 by Syl Ortega PA, PA) Diastolic dysfunction Nonischemic cardiomyopathy Nonrheumatic aortic (valve) stenosis with insufficiency Bicuspid aortic valve Secondary pulmonary arterial hypertension Thrombocytopenia Essential (primary) hypertension Chronic systolic heart failure Surgical History History of left heart catheterization (03/02/13) S/P AVR (aortic valve replacement) and aortoplasty ( 2012) History of aortic valve replacement (04/03/13) Family History Sister Lupus Social History Smoking Status: Former smoker how long ago did patient quit smokin alcohol intake: former substance use type: does not use caffeine: Yes Type: coffee what type of physical activity do you participate in: none seatbelt use: sometimes do you feel safe at home: Yes ROS Const Const: Positive for fatigue; Negative for weakness, headache(s) or frequent falls Eyes Eyes: Negative for blurry vision ENT ENT: Negative for headache(s), dizziness or Nosebleed/epistaxis Cardio Chest Pain: No Palpitations: No Edema: None Muscle aches with walking: None Resp Respiratory: Negative for SOB with activity, SOB at rest or SOB orthopnea SOB lying down GI GI: Negative nausea, vomiting, heartburn, bright, red blood in stools or black,tarry stools : Negative for hematuria Neuro Neuro: Negative for dizziness, frequent falls, headache(s), weakness or blurry vision Endo Endo: Positive for fatigue Supplemental Info Supplemental Information ECHOCARDIOGRAM 03/05/2020 Interpretation Summary Normal LV size. Left ventricular systolic function is normal. The estimated ejection fraction is 55 %. Bioprosthetic aortic valve. Mild (1+) aortic valve insufficiency. Stage 1 diastolic dysfunction. Pulmonary artery systolic pressure is 30 mmHg. ECHOCARDIOGRAM 02/02/2018 Interpretation Summary The estimated ejection fraction is 65 %. Stage 2 diastolic dysfunction. Mild (1+) eccentric mitral valve insufficiency. Mild (1+) tricuspid valve insufficiency. Right ventricular syst (more content not included)... Normal [facility] Basic Metabolic Profile (BMP )on 01-19-2024 BUN/CRE 21.9 RATIO High - [facility] Comment on above: Performed By: #### L 500.2500 #### [facility] [address] [facility] [facility] [address] CA,Total 9.4 mg/dL Normal 8.5-10.1 [facility] Comment on above: Performed By: #### L 500.2500 #### [facility] [address] [facility] [facility] [address] Chloride [Moles/Vol] 107 mmol/L Normal 98-107 [facility] Comment on above: Performed By: #### L 500.2500 #### [facility] [address] [facility] [place], [address] CO2 [Moles/Vol] 24.0 mmol/L Normal 21.0-32.0 [facility] Comment on above: Performed By: #### L 500.2500 #### [facility] [address] [facility]. [facility] [address] Creatinine [Mass/Vol] 1.14 mg/dL Normal 0.70-1.30 [facility] Comment on above: Result Comment: The validity of the calculated GFR GFRAA in patients over 70 years has not been determined. Clinical correlation is essential. Performed By: #### L 500.2500 #### [facility] [address] [place], [address] EST GFR - AA 80 mL/min Normal >60 [facility] Comment on above: Result Comment: Afri can Qatari GFR Calc Performed By: #### L 500.2500 #### [facility] [address] [place], [address] GAP 8 Normal 5-15 [facility] Comment on above: Performed By: #### L 500.2500 #### [facility] [address] [place], [address] GFR/1.73 sq M.predicted among non-blacks MDRD (S/P/Bld) [Vol rate/Area] 66 mL/min/{1.73_m2} Normal >60 [facility] Comment on above: Result Comment: Non- GFR Calc Performed By: #### L 500.2500 #### [facility] [address] [place], [address] Glucose [Mass/Vol] 84 mg/dL Normal 74-106 [facility] Comment on above: Performed By: #### L 500.2500 #### [facility] [address] [place], [address] Potassium [Moles/Vol] 3.9 mmol/L Normal 3.5-5.1 [facility] Comment on above: Performed By: #### L 500.2500 #### [facility] [address] [place], [address] Sodium [Moles/Vol] 139 mmol/L Normal 136-145 [facility] Comment on above: Performed By: #### L 500.2500 #### [facility] [address] [place], [address] Urea nitrogen [Mass/Vol] 25 mg/dL High 7-18 [facility] Comment on above: Performed By: #### L 500.2500 #### [facility] [address] [place], [address] Comprehensive Metabolic Prof ilon 10-22-2023 Albumin [Mass/Vol] 3.8 g/dL Normal 3.2-5.0 [facility] Comment on above: Performed By: #### L 500.4100, L501.9910, L500.4050 #### [facility] [address] [place], [address] Albumin/Globulin [Mass ratio] 1.1 {ratio} Normal 0.9-2.4 [facility] Comment on above: Performed By: #### L 500.4100, L501.9910, L500.4050 #### [facility] [address] [place], [address] ALK P 63 U/L Normal 45-117 [facility] Comment on above: Performed By: #### L 500.4100, L501.9910, L500.4050 #### [facility] [address] [place], [address] ALT [Catalytic activity/Vol] 19 U/L Normal 16-61 [facility] Comment on above: Performed By: #### L 500.4100, L501.9910, L500.4050 #### [facility] [address] [place], [address] AST [Catalytic activity/Vol] 16 U/L Normal 15-37 [facility] Comment on above: Performed By: #### L 500.4100, L501.9910, L500.4050 #### [facility] [address] [place], [address] Bilirubin [Mass/Vol] 0.80 mg/dL Normal 0.20-1.00 [facility] Comment on above: Result Comment: For patients on eltrombopag therapy, use of Dimension [place] TBIL is not recommended. Performed By: #### L 500.4100, L501.9910, L500.4050 #### [facility] [address] [place], [address] BUN/CRE 17.8 RATIO Normal 10-20 [facility] Comment on above: Performed By: #### L 500.4100, L501.9910, L500.4050 #### [facility] [address] [place], [address] CA,Total 8.9 mg/dL Normal 8.5-10.1 [facility] Comment on above: Performed By: #### L 500.4100, L501.9910, L500.4050 #### [facility] [address] [place], [address] Chloride [Moles/Vol] 107 mmol/L Normal 98-107 [facility] Comment on above: Performed By: #### L 500.4100, L501.9910, L500.4050 #### [facility] [address] [place], [address] CO2 [Moles/Vol] 25.0 mmol/L Normal 21.0-32.0 [facility] Comment on above: Performed By: #### L 500.4100, L501.9910, L500.4050 #### [facility] [address] [place], [address] Creatinine [Mass/Vol] 1.35 mg/dL High 0.70-1.30 [facility] Comment on above: Result Comment: The validity of the calculated GFR GFRAA in patients over 70 years has not been determined. Clinical correlation is essential. Performed By: #### L 500.4100, L501.9910, L500.4050 #### [facility] [address] [place], [address] EST GFR - AA 66 mL/min Normal >60 [facility] Comment on above: Result Comment: Afri can Qatari GFR Calc Performed By: #### L 500.4100, L501.9910, L500.4050 #### [facility] [address] [place], [address] GAP 6 Normal 5-15 [facility] Comment on above: Performed By: #### L 500.4100, L501.9910, [id number] #### [facility] [address] [place], [address] GFR/1.73 sq M.predicted among non-blacks MDRD (S/P/Bld) [Vol rate/Area] 54 mL/min/{1.73_m2} Low >60 [facility] Comment on above: Result Comment: Non- GFR Calc Performed By: #### L 500.4100, L501.9910, L500.4050 #### [facility] [address] [place], [address] Globulin (S) [Mass/Vol] 3.5 g/dL Normal 2.2-4.2 [facility] Comment on above: Performed By: #### L 500.4100, L501.9910, [id number] #### [facility] [address] [place], [address] Glucose [Mass/Vol] 95 mg/dL Normal 74-106 [facility] Comment on above: Performed By: #### L 500.4100, L501.9910, [id number] #### [facility] [address] [place], [address] Potassium [Moles/Vol] 3.9 mmol/L Normal 3.5-5.1 [facility] Comment on above: Performed By: #### L 500.4100, L501.9910, [id number] #### [facility] [address] [place], [address] Sodium [Moles/Vol] 138 mmol/L Normal 136-145 [facility] Comment on above: Performed By: #### L 500.4100, L501.9910, [id number] #### [facility] [address] [place], [address] T PROT 7.3 g/dL Normal 6.4-8.2 [facility] Comment on above: Performed By: #### L 500.4100, L501.9910, [id number] #### [facility] [address] [place], [address] Urea nitrogen [Mass/Vol] 24 mg/dL High 7-18 [facility] Comment on above: Performed By: #### L 500.4100, L501.9910, [id number] #### [facility] [address] [place], [address] Lipid Profileon 10-22-2023 Cholesterol [Mass/Vol] 128 mg/dL Normal 200 [facility] Comment on above: Result Comment: <200 mg/dL Desirable 200-240 mg/dL Borderline >240 mg/dL High Risk Performed By: #### L 500.4100, L501.9910, L500.4050 #### [facility] [address] [place], [address] Cholesterol in HDL [Mass/Vol] 33 mg/dL Low [facility] Comment on above: Result Comment: The drugs N-Acetylcysteine and Metamizole may falsely depress this assay. Reference Range HDL <40 mg/dL Low HDL Cholesterol HDL >or= 60 mg/dL High HDL Cholesterol Performed By: #### L 500.4100, L501.9910, L500.4050 #### [facility] [address] [place], [address] Cholesterol in LDL [Mass/Vol] 62 mg/dL Normal 0-130 [facility] Comment on above: Performed By: #### L 500.4100, L501.9910, [id number] #### [facility] [address] [place], [address] Cholesterol in VLDL [Mass/Vol] 33 mg/dL Normal 5-40 [facility] Comment on above: Performed By: #### L 500.4100, L501.9910, [id number] #### [facility] [address] [place], [address] Triglyceride [Mass/Vol] 167 mg/dL Normal [facility] Comment on above: Result Comment: The drugs N-Acetylcysteine and Metamizole may falsely depress this assay. Serum Triglycerides Reference Interval Normal <150 mg/dL Borderline high 150 - 199 mg/dL High 200 - 499 mg/dL Very High > or = 500 mg/dL Performed By: #### L 500.4100, L501.9910, [id number] #### [facility] [address] [place], [address] PSA,Total - Annual Screenon 10-22-2023 PSA,TOT SCREEN 1.55 ng/mL Normal 0.00-4.00 [facility] Comment on above: Result Comment: This test was performed using the TPSA assay method for the [employer] chemistry system. Values obtained with different assay methods cannot be used interchangably. When changing PSA assays in the course of monitoring a patient, additional sequential testing should be carried out to confirm baseline values. Performed By: #### L 500.4100, L501.9910, L500.4050 #### [facility] [address] [place], [address] Absolute lymphocyte countOrd ered By: Felicia Mckee on 09-23-2022 Lymphocytes Auto (Unsp spec) [#/Vol] 1.81 10*3/uL 0.83-4.51 [facility] Basophil percentageOrdered B y: Felicia Mckee on 09-23-2022 Basophils/100 WBC (Bld) 0.5 % 0-1 [facility] Chloride [Moles/Vol] 109 mmol/L 98-107 [facility] Eosinophils/100 WBC (Bld) 2.2 % 0-5 [facility] Glucose [Mass/Vol] 85 mg/dL 74-106 [facility] Neutrophils (Bld) [#/Vol] 3.7 10*3/uL 2.0-7.7 [facility] Neutrophils/100 WBC (Bld) 58.3 % 47-70 [facility] Potassium [Moles/Vol] 4.2 mmol/L 3.5-5.1 [facility] Sodium [Moles/Vol] 139 mmol/L 136-145 [facility] WBC (Bld) [#/Vol] 6.4 10*3/uL 4.4-11.0 [facility] Blood erythrocytes count (nu mber/volume)Ordered By: Felicia Mckee on 09-23-2022 RBC (Bld) [#/Vol] 4.59 10*6/uL 4.6-6.2 [facility] Blood hemoglobin measurement (mass/volume)Ordered By: Felicia Mckee on 09-23-2022 Hemoglobin (Bld) [Mass/Vol] 15.4 g/dL 13.0-16.5 [facility] Blood lymphocytes/100 leukoc ytesOrdered By: Felicia Mckee on 09-23-2022 Lymphocytes/100 WBC (Bld) 28.5 % 19-41 [facility] Blood monocytes/100 leukocyt esOrdered By: Felicia Mckee on 09-23-2022 Monocytes/100 WBC (Bld) 10.2 % 0-10 [facility] Blood platelet mean volumeOr dered By: Felicia Mckee on 09-23-2022 Platelet mean volume (Bld) [Entitic vol] 9.7 fL 6.2-12.0 [facility] Determination of erythrocyte mean corpuscular volume (MCV)Ordered By: Felicia Mckee on 09-23-2022 MCV (RBC) [Entitic vol] 100.9 fL 80-94 [facility] Hematocrit Auto (Bld) [Volum e fraction]Ordered By: Felicia Mckee on 09-23-2022 Hematocrit (Bld) [Volume fraction] 46.3 % 40-54 [facility] - Chemistry and C hemistry - challengeOrdered By: Felicia Mckee on 09-23-2022 CO2 [Moles/Vol] 27.0 mmol/L 21.0-32.0 [facility] Urea nitrogen/Creatinine [Mass ratio] 21.1 mg/mg 10-20 [facility] - Hematology and Cell countsOrdered By: Felicia Mckee on 09-23-2022 Erythrocyte distribution width (RBC) [Entitic vol] 49.1 fL 35.1-43.9 [facility] Erythrocyte distribution width (RBC) [Ratio] 13.2 % 11.6-14.6 [facility] Immature granulocytes/100 WBC (Bld) 0.300 % 0.0-0.9 [facility] Comment on above: IG% - Immature Granu locytes (promyelocytes, myelocytes and metamyelocytes) > 1% indicates that a LEFT SHIFT is Present. MCH (RBC) [Entitic mass] 33.6 pg 27.0-32.0 [facility] Nucleated RBC/100 WBC (Bld) [Ratio] 0 % 0-5 [facility] MCHC Auto (RBC) [Mass/Vol]Or dered By: Felicia Mckee on 09-23-2022 MCHC (RBC) [Mass/Vol] 33.3 g/dL 32-36 [facility] No Panel InformationOrdered By: Felicia Mckee on 09-23-2022 Estimated GFR (MDRD) Amer 70 mL/min >60 [facility] Comment on above: GFR Calc Estimated GFR (MDRD) Non-Af Amer 58 mL/min >60 [facility] Comment on above: Non- GFR Calc Thyroid Stimulating Hormone (TSH) 2.98 uIU/mL 0.358-3.74 [facility] Platelets bldOrdered By: Kenneth Mckee on 09-23-2022 Platelets (Bld) [#/Vol] 143 10*3/uL 150-450 [facility] Serum or plasma calcium ty urement (mass/volume)Ordered By: Felicia Mckee on 09-23-2022 Calcium [Mass/Vol] 9.3 mg/dL 8.5-10.1 [facility] Serum or plasma creatinine m easurement (mass/volume)Ordered By: Felicia Mckee on 09-23-2022 Creatinine [Mass/Vol] 1.28 mg/dL 0.70-1.30 [facility] Comment on above: The validity of the calculated GFR & GFRAA in patients over 70 years has not been determined. Clinical correlation is essential. Serum or plasma urea nitroge n measurement (mass/volume)Ordered By: Felicia Mckee on 09-23-2022 Urea nitrogen [Mass/Vol] 27 mg/dL 10-27 [facility] Thin prep Papanicolaou smear with manual screeningOrdered By: Felicia Mckee on 09-23-2022 Thin prep Papanicolaou smear with manual screening 3 08-24 [facility] Report: Basic Metabolic Profile (BMP)on 03-26-2017 Anion gap 6 mmol/L Invalid Interpretation Code 08-24 [place] [facility] Work Phone: [phone] BUN/Creatinine Ratio 21.1 RATIO High 10-20 [facility] Work Phone: [phone] Calcium 8.7 mg/dL Invalid Interpretation Code 8.5-10.1 [facility] Work Phone: [phone] Chloride 104 mmol/L Invalid Interpretation Code 98-107 [place] [facility] Work Phone: [phone] CO2 28.0 mmol/L Invalid Interpretation Code 21.0-32.0 [facility] Work Phone: [phone] Creatinine 1.23 mg/dL Invalid Interpretation Code 0.70-1.30 [place] [facility] Work Phone: [phone] eGFR (non-black) 62 mL/min/{1.73_m2} Invalid Interpretation Code >60 [facility] Work Phone: [phone] eGFR (non-black) 75 mL/min/{1.73_m2} Invalid Interpretation Code >60 [facility] Work Phone: [phone] Glucose 96 mg/dL Invalid Interpretation Code 70-110 [place] [facility] Work Phone: [phone] Potassium 3.9 mmol/L Invalid Interpretation Code 3.5-5.1 [place] [facility] Work Phone: [phone] Sodium 138 mmol/L Invalid Interpretation Code 136-145 [place] [facility] Work Phone: [phone] Urea nitrogen 26 mg/dL High - 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 09-11-2016 Left ventricular Ejection fraction 25 % [facility] Work Phone: [phone] Office Visiton 09-12-2015 Tobacco smoking status NHIS Tobacco smoking status NHIS Invalid Interpretation Code [facility] Work Phone: [phone] Tobacco smoking status COIS Former smoker [employer] [facility] Work Phone: [phone] Office Visiton 09-18-2014 General cardiovascular disease 10Y risk [#] [place].D'Agostagnies[place]ka 18 % Invalid Interpretation Code [facility] Work Phone: [phone] Replaced Document: [employer] E CG Observationson 09-18-2014 EKG QRS axis 3 deg [employer] [facility] Work Phone: [phone] electrocardiogram interpretation 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 - Nonspecific T-abnormality. 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 - Nonspecific T-abnormality. ABNORMAL [facility] Work Phone: [phone] P Hutchinson 57 deg [facility] Work Phone: [phone] P wave axis, electrocardiogram 57 deg Invalid Interpretation Code [facility] Work Phone: [phone] VA Interval 156 ms [facility] Work Phone: [phone] VA interval, electrocardiogram 156 ms Invalid Interpretation Code [facility] Work Phone: [phone] Pulse (Heart Rate) 74 /min Invalid Interpretation Code [facility] Work Phone: QRS axis, electrocardiogram 3 deg Invalid Interpretation Code [facility] Work Phone: [phone] QRS Duration 106 ms [facility] Work Phone: [phone] QRS duration, electrocardiogram 106 ms Invalid Interpretation Code [facility] Work Phone: [phone] QT Interval new path ms [facility] Work Phone: [phone] QT interval, electrocardiogram new path ms Invalid Interpretation Code [facility] Work Phone: [phone] QTc Ramos 416 ms [facility] Work Phone: [phone] T Hutchinson 124 deg [facility] Work Phone: [phone] T wave axis, electrocardiogram 124 deg Invalid Interpretation Code [facility] Work Phone: [phone] Office Visiton 03-06-2014 cardiac risk group C Invalid Interpretation Code [facility] Work Phone: [phone] Clinical Lists Update: 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 04-19-2013 Anion gap [Moles/Vol] 12 mmol/L [facility] Work Phone: [phone] basophils as percent of blood leukocytes, manual count 0.4 % Invalid Interpretation Code [place] [facility] Work Phone: [phone] Calcium [Mass/Vol] 9.4 mg/dL [facility] Work Phone: [phone] Chloride [Moles/Vol] 105 mmol/L [facility] Work Phone: [phone] CO2 (BldV) [Partial pressure] 24 mmol/L [facility] Work Phone: [phone] Creatinine [Mass/Vol] 1.06 mg/dL [facility] Work Phone: [phone] eosinophils as percent of blood leukocytes, manual count 1.6 % Invalid Interpretation Code [facility] Work Phone: [phone] Erythrocyte distribution width (RBC) [Ratio] 12.8 % [facility] Work Phone: [phone] Erythrocytes (RBC) 3.58 10*6/uL Low [facility] Work Phone: [phone] Glucose [Mass/Vol] 73 mg/dL [facility] Work Phone: [phone] Hematocrit (Bld) [Volume fraction] 36.0 % Low [facility] [place] [facility] Work Phone: [phone] Hematocrit (HCT) 36.0 % Low [facility] Work Phone: [phone] 0 Hemoglobin (Bld) [Mass/Vol] 11.6 g/dL Low [facility] Work Phone: [phone] Lymphocytes/100 leukocytes 28.0 % Invalid Interpretation Code [facility] Work Phone: [phone]() [phone] Lymphocytes/100 WBC (Bld) 28.0 % [facility] Work Phone: [phone] MCH 32.4 pg Invalid Interpretation Code [facility] Work Phone: [phone] MCH (RBC) [Entitic mass] 32.4 pg [facility] Work Phone: [phone]() [phone] MCHC 32.2 g/dL Invalid Interpretation Code [facility] Work Phone: [phone] MCHC (RBC) [Mass/Vol] 32.2 g/dL [facility] Work Phone: [phone]() 0 MCV 100.6 fL High [facility] Work Phone: [phone]() [phone] MCV (RBC) [Entitic vol] 100.6 fL High [facility] Work Phone: [phone] Monocytes/100 leukocytes 9.9 % Invalid Interpretation Code [facility] Work Phone: ) [phone] Monocytes/100 WBC (Bld) 9.9 % [facility] Work Phone: ) 0 neutrophils, band form as percent of blood leukocytes, manual count 60.1 % Invalid Interpretation Code [facility] Work Phone: [phone]() [phone] Platelet mean volume (Bld) [Entitic vol] 9.3 fL [place] [facility] Work Phone: 1() 0 Platelets 342 10*3/mm3 Invalid Interpretation Code [facility] Work Phone: [phone] Platelets (Bld) [#/Vol] 342 10*3/mm3 [facility] Work Phone: 1() 0 PMV by Jon 9.3 fL Invalid Interpretation Code [facility] Work Phone: [phone] Potassium [Moles/Vol] 5.3 mmol/L High [facility] Work Phone: [phone] RBC (Bld) [#/Vol] 3.58 10*6/uL Low [facility] Work Phone: [phone] RDW-CA 12.8 % Invalid Interpretation Code [facility] Work Phone: [phone] Sodium [Moles/Vol] 141 mmol/L [facility] Work Phone: [phone] Urea nitrogen [Mass/Vol] 23 mg/dL [facility] Work Phone: [phone] WBC (Bld) [#/Vol] 5.04 10*3/uL [facility] Work Phone: [phone] WBC (Leukocytes) 5.04 10*3/uL Invalid Interpretation Code [facility] Work Phone: [phone] Clinical Lists Update: 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 03-02-2013 Cholesterol [Mass/Vol] 149 mg/dL Invalid Interpretation Code [facility] Work Phone: [phone] Cholesterol in HDL [Mass/Vol] 37 mg/dL Low [facility] Work Phone: [phone] Cholesterol in LDL [Mass/Vol] 90 mg/dL Invalid Interpretation Code [facility] Work Phone: [phone] Lipoprotein.pre-beta [Mass/Vol] 22 mg/dL Invalid Interpretation Code [facility] Work Phone: [phone] Triglyceride [Mass/Vol] 108 mg/dL Invalid Interpretation Code [facility] Work Phone: [phone] Vital Signs Date Time Vital Sign Value Performing Clinician Faci lity 06-15-2024 07:44-0500 Body height 175.[address] Sumanth Hernández MD Work Phone: [facility] 06-15-2024 07:44-0500 Body mass index (BMI) [Ratio] 26.7 kg/m2 Dr. Sumanth Hernández MD Work Phone: [facility] 06-15-2024 07:44-0500 Body weight 82.[address] Sumanth Hernández MD Work Phone: [facility] 06-15-2024 07:44-0500 Diastolic blood pressure 100 mm[Hg] Dr. Sumanth Hernández MD Work Phone: [facility] 06-15-2024 07:44-0500 Heart rate 54 /min Dr. Sumanth Hernández MD Work Phone: [facility] 06-15-2024 07:44-0500 Respiratory rate 18 /min Dr. Sumanth Hernández MD Work Phone: [facility] 06-15-2024 07:44-0500 SaO2% (BldA) [Mass fraction] 98 % Dr. Sumanth Hernández MD Work Phone: [facility] 06-15-2024 07:44-0500 Systolic blood pressure 169 mm[Hg] Dr. Sumanth Hernández MD Work Phone: [phone] [place] [address] 09-23-2022 12:58-0400 Body height 175.[address] Sumanth Hernández Work Phone: [facility] 09-23-2022 12:58-0400 Body mass index (BMI) [Ratio] 25.8 kg/m2 Dr. Sumanth Hernández Work Phone: [facility] 09-23-2022 12:58-0400 Body weight 79.[address] Sumanth Hernández Work Phone: [facility] 09-23-2022 12:58-0400 Diastolic blood pressure 88 mm[Hg] Dr. Sumanth Hernández Work Phone: [facility] 09-23-2022 12:58-0400 Heart rate 55 /min Dr. Sumanth Hernández Work Phone: [facility] 09-23-2022 12:58-0400 Respiratory rate 18 /min Dr. Sumanth Hernández Work Phone: [facility] 09-23-2022 12:58-0400 SaO2% (BldA) [Mass fraction] 98 % Dr. Sumanth Hernández Work Phone: [facility] 09-23-2022 12:58-0400 Systolic blood pressure 149 mm[Hg] Dr. Sumanth Hernández Work Phone: [facility] 09-15-2016 09:11-0400 BMI (Body Mass Index) 25.87 kg/m2 [facility] Work Phone: 09-15-2016 09:11-0400 Body weight 79.47 kg Arabella Colmenares [facility] Work Phone: 09-15-2016 09:11-0400 BP Diastolic 70 mm[Hg] Arabella Colmenares [facility] Work Phone: 09-15-2016 09:11-0400 BP Systolic 150 mm[Hg] Arabella Colmenares [facility] Work Phone: 09-15-2016 09:11-0400 Height 175.26 cm Arabella Colmenares [facility] Work Phone: 09-15-2016 09:11-0400 Pulse (Heart Rate) 60 /min Arabella Colmenares [facility] Work Phone: 09-15-2016 09:11-0400 Respiratory Rate 20 /min Arabella Colmenares [facility] Work Phone: 09-15-2016 09:11-0400 Weight 79.47 kg Alexandra Carbajal RN [facility] Work Phone: 03-11-2016 09:59-0500 BMI (Body Mass Index) 27.02 kg/m2 [facility] Work Phone: 03-11-2016 09:59-0500 Body weight 83.01 kg Edin Deluca [facility] Work Phone: 03-11-2016 09:59-0500 BP Diastolic 90 mm[Hg] Edin Deluca [facility] Work Phone: 03-11-2016 09:59-0500 BP Systolic 134 mm[Hg] [facility] Work Phone: 03-11-2016 09:59-0500 BSA (Body Surface Area) 1.99 m2 Edin DeFinis [facility] Work Phone: 03-11-2016 09:59-0500 Pulse (Heart Rate) 60 /min Harumi DeFinis [facility] Work Phone: 03-11-2016 09:59-0500 Respiratory Rate 20 /min Haryobany DeFinis [facility] Work Phone: 09-12-2015 10:24-0400 BP Diastolic 90 mm[Hg] Harumi DeFinis [facility] Work Phone: 09-12-2015 10:24-0400 BP Systolic 132 mm[Hg] Harumi DeFinis [facility] Work Phone: 09-12-2015 10:24-0400 Height 175.26 cm Harumi DeFinis [facility] Work Phone: 09-18-2014 10:11-0400 Heart rate 74 /min Haryobany DeFinis [facility] Work Phone: 05-03-2013 13:52-0500 Body Temperature 97.8 [degF] Edin DeFinis [facility] Work Phone: 05-03-2013 13:52-0500 Pulse Oximetry 98 % Edin DeFinmaritza [facility] Work Phone: Encounters Encounter Date Encounter Type Care Provider Facility Start: 07-13-2024 Non-patient / Non-visit Dr. Sulma REYNOSO [facility] Start: 07-13-2024 End: 07-13-[address] Sumanth Hernández MD Work Phone: [facility] Work Phone: Start: 07-13-2024 End: 07-13-2024 Patient encounter procedure Syl LEWIS [facility] Work Phone: Start: 07-13-2024 End: 07-13-2024 ambulatory Syl Ortega Facility:[facility] Start: 06-15-2024 End: 06-15-2024 Patient encounter procedure Syl LEWIS -[facility] Work Phone: Start: 06-15-2024 End: 06-15-2024 ambulatory Sumanth Nevarezelsen Facility:[facility] Start: 02-08-2024 Encounter for genera l adult medical examination without abnormal findings Sumanth Hernández [facility] Start: 01-19-2024 End: 01-19-2024 ambulatory Sumanth Hernández Facility:[facility] Start: 10-22-2023 End: 10-22-2023 ambulatory Sumanth Hernández Facility:[facility] Start: 09-23-2022 End: 09-23-[address] Sumanth Hernández Work Phone: [facility] Work Phone: Start: 09-23-2022 End: 09-23-[address] Sumanth Hernández Work Phone: [facility] Procedures Date Procedure Procedure Detail Performing Clinician Start: 09-15-2016 End: 09-15-2016 Documentation of current medications Arabella Colmenares Start: 09-15-2016 End: 10-01-2016 Echocardiography Michael Mcgraw MD Start: 09-15-2016 End: 09-15-2016 Follow Up Appt 6 months Gaby Sierra Start: 09-15-2016 End: 09-15-2016 MMGaby Mcgraw MD Start: 03-11-2016 End: 03-11-2016 Documentation of current medications Edin Deluca Start: 03-11-2016 End: 03-11-2016 OBSTETRICS GYNECOLOGY MD Syl Ortega PA-C Work Phone: Start: 03-11-2016 End: 03-11-2016 Follow Up Appt 6 months Syl aragon PA-C Work Phone: Start: 09-12-2015 End: 03-03-2016 Echocardiography Michael Mcgraw MD Start: 09-12-2015 End: 09-12-2015 Follow Up Appt 6 months Gaby Sierra Start: 09-12-2015 End: 09-12-2015 MIGEUL Mcgraw MD Start: 03-21-2015 End: 03-03-2016 *BMP Syl Ortega PA-C Work Phone: Start: 03-21-2015 End: 03-21-2015 OBSTETRICS GYNECOLOGY MD Syl Ortega PA-C Work Phone: Start: 03-21-2015 End: 03-21-2015 Follow Up Appt 6 months Syl aragon PA-C Work Phone: Start: 03-21-2015 End: 03-21-2015 Follow Up BP Check Syl Ortega PA-C Work Phone: Start: 09-18-2014 End: 09-19-2014 Documentation of current medications Michael Mcgraw MD Start: 09-18-2014 End: 09-28-2014 Echocardiography Michael Mcgraw MD Start: 09-18-2014 End: 09-18-2014 Follow Up Appt 6 months Gaby Sierra Start: 09-18-2014 End: 09-18-2014 MIGUEL Mcgraw MD Start: 03-06-2014 End: 03-06-2014 IMTIAZ Mcgraw MD Start: 03-06-2014 End: 03-06-2014 Follow Up Appt 6 months Gaby Sierra Start: 09-05-2013 End: 09-05-2013 IMTIAZ Mcgraw MD Start: 09-05-2013 End: 09-05-2013 Follow Up Appt 6 months Gaby Sierra Start: 05-03-2013 End: 03-03-2016 Cardiac Rehab Michael Mcgraw MD Start: 05-03-2013 End: 05-03-2013 OBSTETRICS GYNECOLOGY MD Michael Mcgraw MD Start: 05-03-2013 End: 10-30-2013 Echocardiography Michael Mcgraw MD Start: 05-03-2013 End: 05-03-2013 Electrocardiogram, complete Michael Cabrera i, MD Start: 05-03-2013 End: 05-03-2013 Follow Up Appt 4 months Gaby Sierra Start: 05-02-2013 Replacement of aortic valve Aortic valve replacement Edin Deluca Plan of Treatment Date Care Activity Detail Author Start: 03-26-2017 End: 03-26-2017 Appointment Appointment [facility] Work Phone: Start: 09-15-2016 End: 09-15-2016 Appointment Appointment [facility] Work Phone: Start: 09-15-2016 End: 09-16-2016 Echocardiography Echocardiogram (complete) [facility] Work Phone: Start: 09-15-2016 End: 09-15-2016 Follow Up Appt 6 months Follow Up Appt 6 months [facility] Work Phone: Start: 09-15-2016 End: 09-15-2016 MMM MMM [facility] Work Phone: Start: 03-11-2016 End: 03-11-2016 OBSTETRICS GYNECOLOGY MD IMTIAZ [facility] Work Phone: Start: 03-11-2016 End: 03-11-2016 Follow Up Appt 6 months Follow Up Appt 6 months [facility] Work Phone: Start: 09-12-2015 End: 09-12-2015 Echocardiography Echocardiogram (complete) [facility] Work Phone: Start: 09-12-2015 End: 09-12-2015 Follow Up Appt 6 months Follow Up Appt 6 months [facility] Work Phone: Start: 09-12-2015 End: 09-12-2015 MMM MMM [facility] Work Phone: Start: 03-21-2015 End: 03-03-2016 *BMP *BMP [facility] Work Phone: Start: 03-21-2015 End: 03-21-2015 OBSTETRICS GYNECOLOGY MD OBSTETRICS GYNECOLOGY MD [facility] Work Phone: Start: 03-21-2015 End: 03-21-2015 Follow Up Appt 6 months Follow Up Appt 6 months [facility] Work Phone: Start: 03-21-2015 End: 03-21-2015 Follow Up BP Check Follow Up BP Check [facility] Work Phone: Start: 09-18-2014 End: 09-18-2014 Echocardiography Echocardiogram (complete) [facility] Work Phone: Start: 09-18-2014 End: 09-18-2014 Follow Up Appt 6 months Follow Up Appt 6 months [facility] Work Phone: Start: 09-18-2014 End: 09-18-2014 MMM MMM [facility] Work Phone: Start: 03-06-2014 End: 03-06-2014 OBSTETRICS GYNECOLOGY MD OBSTETRICS GYNECOLOGY MD [facility] Work Phone: Start: 03-06-2014 End: 03-06-2014 Follow Up Appt 6 months Follow Up Appt 6 months [facility] Work Phone: Start: 09-05-2013 End: 09-05-2013 OBSTETRICS GYNECOLOGY MD OBSTETRICS GYNECOLOGY MD [facility] Work Phone: Start: 09-05-2013 End: 09-05-2013 Follow Up Appt 6 months Follow Up Appt 6 months [facility] Work Phone: Start: 05-03-2013 End: 03-03-2016 Cardiac Rehab Cardiac Rehab [facility] Work Phone: Start: 05-03-2013 End: 05-03-2013 OBSTETRICS GYNECOLOGY MD OBSTETRICS GYNECOLOGY MD [facility] Work Phone: Start: 05-03-2013 End: 05-03-2013 Echocardiography Echocardiogram (complete) [facility] Work Phone: Start: 05-03-2013 End: 05-03-2013 Electrocardiogram, complete EKG (In office) [facility] Work Phone: Start: 05-03-2013 End: 05-03-2013 Follow Up Appt 4 months Follow Up Appt 4 months [facility] Work Phone: Basic metabolic 2008 panel with ionized calcium - Serum or Plasma [facility] Patient referral [facility] Work Phone: [facility] Immunizations Immunization Date Immunization Notes Care Provider Fa [facility] 02-02-2018 influenza, injectabl e, quadrivalent, preservative free Dr. Sumanth Hernández MD Work Phone: [facility] 02-02-2018 influenza, seasonal, injectable Dr. Sumanth Hernández Work Phone: [facility] Payers Date Payer Category Payer Self-pay [id number] 2023 Self-pay [id number] 2016 Unknown [id number] Medicare MEDICARE A ONLY [id number] Unknown [id number] Unknown [id number] Unknown [id number] Unknown [id number] Unknown [id number] [id number] [id number] Social History Date Type Detail Facility Start: 09-23-2022 Tobacco smoking status COIS Unknown if ever smoked [facility] Start: 02-01-2018 None [facility] Start: 02-01-2018 Spouse/ Signif icant Other [facility] Start: 1945 Sex Assigned At Male [facility] Start: 09-23-2022 Tobacco smoking status NHIS Ex-smoker (finding) [facility] Start: 07-19-2024 Sex Male (finding) [facility] Evaluation note 06-15-2024 Note Date & Type Note Facility 06-15-2024 Evaluation note Diagnosis Onset Date Resolution Essential (primary) hypertension chronic June 15, 2024 2:33pm History of aortic valve replacement April 03, 2013 chronic June 15, 2024 2:33pm [facility] Work Phone: Evaluation note 04-03-2013 Note Date & Type Note Facility 04-03-2013 Evaluation note Diagnosis Onset Date Fatigue acute Essential (primary) hypertension chronic History of aortic valve replacement April 03, 2013 [facility] Work Phone: Reason for referral (narrative) Note Date & Type Note Facility Reason for referral (narrative) No reason for referral information available [facility] Work Phone: Chief Complaint and Reason for Visit Chief Complaint 1 Y FU E ORDERS Reason for Visit Fatigue Essential (primary) hypertension History of aortic valve replacement Chief Complaint Admit Date OVERDUE FOR OV/LAST SEEN 10/02 2:33pm VALVE REPLACEMENT-EVAL July 13, 2024 2 :11pm Reason for Visit Admit Date Essential (primary) hypertension June 152024 2:33pm History of aortic valve replacement Chriss 2024 2:33pm Advance Directives No Advanced Directives Records Found Advance Directive Response Recorded Date/ Time Advance Directives No February 12:33pm Living Will No February 01 4:15pm Power of Lead Electrical Controls Engineer No February 01, 2018 4:15pm Advance Directive Response Recorded Date/ Time Advance Directives No February 12:33pm Summary Purpose Family History No Family History Records Found Additional Source Comments Care Teams (unrecognized sec tion and content) Team Status: Active Member Role Status Dates Dr. Sumanth Hernández MD Family Provider Active Dr. Sumanth Hernández MD Primary Care Provider Active Team Status: Inactive Member Role Status Dates Dr. Sumanth Hernández MD Primary Care Provider, Referring Provider Active Felicia Mckee [employer]AT BUILDER, WO[employer]EN [employer]AT BUILDER-C Attending Provider Active Team Status: Inactive Member Role Status Dates Dr. Smuanth Hernández MD Primary Care Provider Active Felicia Mckee WO[employer]EN BOAT BUILDER, WOODEN BOAT BUILDER-C Attending Provider, Referring P laney Active Team Status: Active Member Role Status Dates Dr. Sumanth Hernández MD Primary Care Provider Active Team Status: Inactive Member Role Status Dates Dr. Sumanth Hernández MD Primary Care Provider Active Start: June 15, 2024 End: June 15, 2024 Dr. Sumanth Hernández MD Referring Provider Active Start: June 15, 2024 End: June 15, 2024 DEBBIE Washburn Attending Provider Active Start: June 15, 2024 End: June 15, 2024 Team Status: Inactive Member Role Status Dates Dr. Sumanth Hernández MD Primary Care Provider Active Start: July 13, 2024 End: July 13, 2024 DEBBIE Washburn Attending Provider Active Start: July 13, 2024 End: July 13, 2024 DEBBIE Washburn Referring Provider Active Start: July 13, 2024 End: July 13, 2024 Team Status: Active Member Role Status Dates Dr. Sumanth Hernández MD Primary Care Provider Active Start: July 13, 2024 Dr. Michael Mcgraw MD Attending Provider Active S tart: July 13, 2024 Goals (unrecognized section and content) Goals may be documented in a n alternate sectionGoals may be documented in an alternate section (unrecognized sect ion and content) No Status Records Found INFORMATION SOURCE (unrecogn ized section and content) DATE CREATED AUTHOR 07/21/2024 [facility] FOR RECORDS PERTAINING TO PATIENTS WHO ARE OR HAVE BEEN ENROLLED IN A CHEMICAL DEPENDENCY/SUBSTANCEABUSE PROGRAM, SOME INFORMATION MAY BE OMITTED. This clinical summary was aggregated from multiple sources. Caution should be exercised in using it in the provision of clinical care. This summary normalizes information from multiple sources, and as a consequence, information in this document may materially change the coding, format and clinical context of patient data. In addition, data may be omitted in some cases. CLINICAL DECISIONS SHOULD BE BASED ON THE PRIMARY CLINICAL RECORDS. [facility] [employer] [facility] provides no warranty or guarantee of the accuracy or completeness of information in this document.
[2025-03-30 18:38] LABS: Anion Gap 8 (5-15); BUN 24 mg/dL (4-19); BUN/Creat Ratio 20.4 RATIO (10-20); Calcium,Total 9.2 mg/dL (7.6-11.0); Carbon Dioxide 26.6 mmol/L (21.0-32.0); Chloride 105 mmol/L (98-108); Cholesterol 136 mg/dL (<=200); Glucose 85 mg/dL (70-99); Low Density Lipoprotein Calc. 77 mg/dL; PSA,Total - Annual Screen 1.39 ng/mL (0.02-4.00); Potassium 4.2 mmol/L (3.3-5.1); Triglycerides 136 mg/dL; Very Low Density Lipoprotein 27 mg/dL (5-40); cholesterol:hdl ratio screen 3.85
== END | disposition home or self-care (01) ==
LOC: MTLAB 15:54
PROVIDERS: PCP Family Medicine; Referring Provider Family Medicine; Visit Provider Family Medicine
DX: Z00.00 Encounter for general adult medical examination without abnormal findings (principal); I10 Essential (primary) hypertension
CPT/HCPCS: 36415; 80048; 80061; 84153; G0103